=== PATIENT | female | born 1950 | race African-American/Black ===

== ENCOUNTER 2016-07-05 12:16 | Emergency (ER) | payer OTHER ==
[~2016-07-05] VITALS: Ht 162.6 cm; Wt 87.1 kg
[~2016-07-05 12:16] MED LIST: ALBU2.5V14 IH; ALPR1TAB2 PO; ATOR40TA PO; BISA-42 PO; BRIN10DR EACHEYE; CITA20TA5 PO; CLON0.5T3 PO; DICL50TA2 PO; HYDR-971 PO; HYDR1TAB10 PO; LISI10TA2 PO; LISI1TAB5 PO; LORA10TA3 PO; LOSA100T2 PO; LOSA100T6 PO; MILN100T PO; MULT-246 PO; OXYC-323 PO; PYRI25TA2 PO; QUET100T4 PO; QUET25TA5 PO; TOPI100T39 PO; TOPI100T90 PO
[2016-07-05] MEDS ORDERED: OXYC-323 PO (12:53)
--- NOTE | 2016-07-05 13:02 | ED.ADGEN ---
Past History Past Medical History: Bronchitis, Diabetes, Fibromyalgia, Hypertension Past Surgical History: Hysterectomy, Tubal ligation, Other Smoking: Non-smoker Alcohol Use: None Drug Use: None Adult General HPI HPI Patient is a 65-year-old female presents emergency department complaining of myalgia "everywhere". She reports she has pain from top of her head to the bottom of her feet. She reports falling out of bed last night. She tells me she was sleeping next to a sick child and an attempt not to wake the child loss of balance skin on the bed and fell to the floor. She denies any specific or focal complaint but reports that the fall aggravated all of her past injuries. She declines any x-rays or workup but is requesting Percocet as her home medications and I given her satisfactory relief. Review of Systems Review of Systems Constitutional: Denies fever or chills [] Eyes: Denies change in visual acuity, redness, or eye pain [] HENT: Denies nasal congestion or sore throat [] Respiratory: Denies cough or shortness of breath [] Cardiovascular: No additional information not addressed in HPI [] GI: Denies abdominal pain, nausea, vomiting, bloody stools or diarrhea [] : Denies dysuria or hematuria [] Musculoskeletal: Denies back pain or joint pain [] Integument: Denies rash or skin lesions [] Neurologic: Denies headache, focal weakness or sensory changes [] Endocrine: Denies polyuria or polydipsia [] Allergies Allergies Allergies Coded Allergies Type Severity Reaction Last Updated Verified hydrocodone Allergy Intermediate itching 09/13/13 No oxycodone Allergy Intermediate ITCHING, takes PERCOCET at home 05/12/14 No Physical Exam Physical Exam Constitutional: Well developed, well nourished, no acute distress, non-toxic appearance. [] HENT: Normocephalic, atraumatic, bilateral external ears normal, oropharynx moist, no oral exudates, nose normal. [] Eyes: PERRLA, EOMI, conjunctiva normal, no discharge. [] Neck: Normal range of motion, no tenderness, supple, no stridor. [] Cardiovascular:Heart rate regular rhythm, no murmur [] Lungs & Thorax: Bilateral breath sounds clear to auscultation [] Abdomen: Bowel sounds normal, soft, no tenderness, no masses, no pulsatile masses. [] Skin: Warm, dry, no erythema, no rash. [] Back: No tenderness, no CVA tenderness. [] Extremities: No tenderness, no cyanosis, no clubbing, ROM intact, no edema. [] Neurologic: Alert and oriented X 3, normal motor function, normal sensory function, no focal deficits noted. [] Psychologic: Affect normal, judgement normal, mood normal. [] Current Patient Data Vital Signs Vital Signs Date Time Temp Pulse Resp B/P Pulse Ox O2 Delivery O2 Flow Rate FiO2 07/05/16 12:16 98.2 86 20 97 Room Air EKG EKG [] Radiology/Procedures Radiology/Procedures [] Course & Med Decision Making Course & Med Decision Making Pertinent Labs and Imaging studies reviewed. (See chart for details) The patient is not in much distress. We did spend a significant amount of time discussing the usual supportive care but ultimately she will be discharged home with a small prescription for Percocet as well as supportive care and follow-up instructions. [] Final Impression Final Impression Myalgias [] Problems: Dragon Disclaimer Dragon Disclaimer This electronic medical record was generated, in whole or in part, using a voice recognition dictation system. DELFINO DE LEON MD Jul 05, 2016 13:02
[2016-07-05] MEDS: FENTANYL PF 100 MCG/2 ML VIAL. IM ONE (13:19)
[2016-07-05 13:20] VITALS: BP 142/80
== END 2016-07-05 13:35 | disposition home or self-care (01) ==
LOC: ER 12:16
DX: M79.1 Myalgia (principal); E11.9 Type 2 diabetes mellitus without complications; M79.7 Fibromyalgia; I10 Essential (primary) hypertension; Z88.6 Allergy status to analgesic agent; W06.XXXA Fall from bed, initial encounter; Y93.89 Activity, other specified; Y99.8 Other external cause status; Y92.89 Other specified places as the place of occurrence of the external cause
CPT/HCPCS: 96372; 99284; J3010; 99283-25

== ENCOUNTER 2016-10-08 21:05 | Emergency (ER) | payer OTHER ==
[~2016-10-08] VITALS: Ht 162.6 cm; Wt 90.7 kg
[~2016-10-08 21:05] MED LIST changes: -TOPI100T39 PO; +TOPI100T42 PO; +TOPI100T8 PO; -TOPI100T90 PO
[2016-10-08 21:16] VITALS: BP 133/85
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
[2016-10-08] MEDS ORDERED: KETOROLAC 30 MG/ML VIAL. IV ONE (21:30)
[2016-10-08] MEDS ORDERED: ACETAMINOPHEN 325 MG TABLET PO ONE (21:30)
[2016-10-08] MEDS ORDERED: IV NORMAL SALINE 1,000ML 1,000 ML IV SCH (21:30)
[2016-10-08] MEDS ORDERED: 0.9 % SODIUM CHLORIDE 10 ML DISP.SYRIN. IV PRN (21:30)
[2016-10-08 22:14] LABS: BASO # 0.2 x10^3/uL (0.0-0.2); BASO % 2 % (0-3); EOS # 0.4 x10^3/uL (0.0-0.7); EOS % 4 % (0-3); HEMATOCRIT 32.8 % (36.0-47.0); HEMOGLOBIN 10.9 g/dL (12.0-15.5); LYMPH # 3.9 x10^3/uL (1.0-4.8); LYMPH % 45 % (24-48); MEAN CORPUSCULAR HEMOGLOBIN 28 pg (25-35); MEAN CORPUSCULAR HGB CONC 33 g/dL (31-37); MEAN CORPUSCULAR VOLUME 84 fL (79-100); MONO # 0.6 x10^3/uL (0.0-1.1); MONO % 7 % (0-9); NEUT # 3.7 x10^3uL (1.8-7.7); NEUT % 42 % (31-73); PLATELET COUNT 286 x10^3/uL (140-400); RED BLOOD COUNT 3.92 x10^6/uL (3.50-5.40); RED CELL DISTRIBUTION WIDTH 14.1 % (11.5-14.5); WHITE BLOOD COUNT 8.8 x10^3/uL (4.0-11.0)
[2016-10-08 22:31] LABS: INFLUENZA A PATIENT NEGATIVE (NEGATIVE); INFLUENZA B PATIENT NEGATIVE (NEGATIVE)
[2016-10-08 22:36] LABS: ALBUMIN 3.4 g/dL (3.4-5.0); ALBUMIN/GLOBULIN RATIO 0.7 (1.0-1.7); C REACTIVE PROTEIN 2.7 mg/L (0-3.3); CALCIUM 8.8 mg/dL (8.5-10.1); CREATININE 0.9 mg/dL (0.6-1.0); GFR 75.6; MAGNESIUM 1.8 mg/dL (1.8-2.4); POTASSIUM 3.6 mmol/L (3.5-5.1); TOTAL BILIRUBIN 0.1 mg/dL (0.2-1.0)
[2016-10-08 23:18] LABS: SEDIMENTATION RATE 48 (0-25)
--- NOTE | 2016-10-09 00:34 | EKG ---
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
== END 2016-10-08 23:15 | disposition home or self-care (01) ==
LOC: ER 21:05
DX: M79.1 Myalgia (principal); M19.90 Unspecified osteoarthritis, unspecified site; E11.9 Type 2 diabetes mellitus without complications; I10 Essential (primary) hypertension; M79.7 Fibromyalgia; Z88.6 Allergy status to analgesic agent
CPT/HCPCS: 36415; 80053; 82553; 83690; 83735; 83880; 84443; 84484; 85027; 85651; 86140; 87804; 93005; 96361; 96374; 99285; J1885; J7030

== ENCOUNTER 2016-12-27 19:01 | Emergency (ER) | payer OTHER ==
[~2016-12-27] VITALS: Ht 162.6 cm; Wt 90.5 kg
[2016-12-27 19:02] VITALS: BP 141/53
[2016-12-27] MEDS ORDERED: TRAM1TAB4 PO (19:47)
[2016-12-27] MEDS ORDERED: AMOX500C PO (19:47)
[2016-12-27] MEDS ORDERED: CHLO15MO2 PO (19:47)
--- NOTE | 2016-12-27 19:47 | PHYS DOC ---
Past History Past Medical History: Bronchitis, Diabetes, Fibromyalgia, High Cholesterol, Hypertension Past Surgical History: Hysterectomy, Tubal ligation, Other Smoking: Non-smoker Alcohol Use: None Drug Use: None Adult General Chief Complaint Chief Complaint: ABSCESS HPI HPI Patient is a 66 year old female who presents with dental pain. She complains of pain to her mid upper incisors. "I feel like my upper lip is swollen." No drainage. "I have pain up into my eye." She was recently here in October for body aches with a negative evaluation. She does have fibromyalgia with long-standing pain and benzodiazepine Prescriptions in the tracks. Review of Systems Review of Systems Constitutional: Denies fever or chills Eyes: Denies change in visual acuity, redness, or drainage. HENT: Denies nasal congestion or sore throat; pain to upper tooth and lip. Allergies Allergies Allergies Coded Allergies Type Severity Reaction Last Updated Verified hydrocodone Allergy Intermediate itching 09/13/13 No oxycodone Allergy Intermediate ITCHING, takes PERCOCET at home 05/12/14 No Physical Exam Physical Exam Constitutional: Well developed, well nourished, no acute distress, non-toxic appearance. HENT: Normocephalic, atraumatic, tympanic membranes clear bilaterally, bilateral external ears normal, oropharynx moist, no oral exudates, nose normal. Upper dentition appears intact. No periapical swelling. The upper lip again is nonswollen. There is no palpable mass or abscess. No facial drainage. There is no drooling. handling secretions well. Eyes: PERRLA, EOMI, conjunctiva normal, no discharge. Neck: Normal range of motion, no tenderness, supple, no stridor. Cardiovascular:Heart rate regular rhythm, no murmur Lungs & Thorax: Bilateral breath sounds clear to auscultation Neurologic: Alert and oriented X 3, normal motor function, normal sensory function, no focal deficits noted. Course & Med Decision Making Course & Med Decision Making Patient feels like she has a dental abscess. However there is no obvious signs of a dental abscess. I told her she needs to see a dentist for complete evaluation. A prescription for Peridex rinses, amoxicillin, tramadol were given. I have spoken with the patient and/or caregivers. I have explained the patient' s condition, diagnosis and treatment plan based on the information available to me at this time. I have answered the patient's and/or caregiver's questions and addressed any concerns. The patient and/or caregivers have as good an understanding of the patient's diagnosis, condition and treatment plan as can be expected at this point. The patient's condition is stable and appropriate for discharge from the emergency department. The patient will pursue further outpatient evaluation with the primary care physician or other designated or consulting physician as outlined in the discharge instructions. The patient and/or caregivers are agreeable to this plan of care and follow-up instructions have been explained in detail. The patient and/or caregivers have received these instructions in written format and have expressed an understanding of the discharge instructions. The patient and/or caregivers are aware that any significant change in condition or worsening of symptoms should prompt an immediate return to this or the closest emergency department or a call to 911. Dragon Disclaimer Dragon Disclaimer This chart was dictated in whole or in part using Voice Recognition software in a busy, high-work load, and often noisy Emergency Department environment. It may contain unintended and wholly unrecognized errors or omissions. Departure Departure: Impression: Primary Impression: Pain, dental Disposition: 01 HOME, SELF-CARE Condition: STABLE Referrals: EVE HANCOCK (PCP) Patient Instructions: Dental Caries Additional Instructions: Use the rinse twice daily. SEE A DENTIST JEREMY Scripts Amoxicillin (AMOXICILLIN) 500 Mg Capsule 1 CAP PO BID, #20 CAP Prov: MITCH RODRÍGUEZ MD 12/27/16 Tramadol Hcl/Acetaminophen (TRAMADOL-ACETAMINOPHN 37.5-325) 1 Each Tablet 1 TAB PO Q4-6HRS, #15 TAB Prov: MITCH RODRÍGUEZ MD 12/27/16 Chlorhexidine Gluconate (PERIDEX) 15 Ml Mouthwash 15-30 ML PO TID, #473 ML 3 Refills Prov: MITCH RODRÍGUEZ MD 12/27/16 MITCH RODRÍGUEZ MD Dec 27, 2016 19:47
== END 2016-12-27 19:50 | disposition home or self-care (01) ==
LOC: ER 19:01
DX: K08.89 Other specified disorders of teeth and supporting structures (principal); E11.9 Type 2 diabetes mellitus without complications; E78.00 Pure hypercholesterolemia, unspecified; I10 Essential (primary) hypertension; M79.7 Fibromyalgia; Z88.5 Allergy status to narcotic agent
CPT/HCPCS: 99283

== ENCOUNTER 2017-02-03 11:07 | Emergency (ER) | payer OTHER ==
[2017-02-03 11:07] VITALS: BP 137/74
[~2017-02-03 11:07] MED LIST changes: +AMOX500C PO; +CHLO15MO2 PO; +TRAM1TAB4 PO
[2017-02-03] MEDS ORDERED: NYST15CR2 TP (11:28)
--- NOTE | 2017-02-03 11:28 | PHYS DOC ---
Past History Past Medical History: Bronchitis, Diabetes, Fibromyalgia, High Cholesterol, Hypertension Past Surgical History: Hysterectomy, Tubal ligation, Other Smoking: Non-smoker Alcohol Use: None Drug Use: None Adult General Chief Complaint Chief Complaint: SKIN PROBLEM HPI HPI Patient is a pleasant 66-year-old female who presents with a rash on her lower abdomen between skin folds of her abdomen and her thighs. She describes it was tense and itchy with areas of discomfort, she denies any fevers, chills, joint pain, headaches or other symptoms. She says she's had a URI-like symptoms: Last several days. She denies any recent changes medications, antibiotics, prior symptoms of the same. She has a history of shingles in the past on her gluteus region. She's been using a local ointment without much much improvement. Review of Systems Review of Systems Constitutional: Denies fever or chills [] Eyes: Denies change in visual acuity, redness, or eye pain [] HENT: Denies nasal congestion or sore throat [] Respiratory: Denies cough or shortness of breath [] Cardiovascular: No additional information not addressed in HPI [] GI: Denies abdominal pain, nausea, vomiting, bloody stools or diarrhea [] : Denies dysuria or hematuria [] Musculoskeletal: Denies back pain or joint pain [] Integument: Patient claims about a skin rash on her lower abdomen between the folds or skin abdominal wall and thighs. Neurologic: Denies headache, focal weakness or sensory changes [] Allergies Allergies Allergies Coded Allergies Type Severity Reaction Last Updated Verified hydrocodone Allergy Intermediate itching 09/13/13 No oxycodone Allergy Intermediate ITCHING, takes PERCOCET at home 05/12/14 No Physical Exam Physical Exam Vital signs recorded on the chart for boardline hypertension noted. Constitutional: Well developed, well nourished, no acute distress, non-toxic appearance. [] Cardiovascular:Heart rate regular rhythm, no murmur [] Lungs & Thorax: Bilateral breath sounds clear to auscultation [] Abdomen: Bowel sounds normal, soft, no tenderness, no masses, no pulsatile masses. [] Skin: Warm, dry, patient has a typical erythematous candidal rash on the folds or skin with some skin breakdown and maceration secondary to the adipose tissue. There are some noted satellite lesions but no evidence of cellulitis. No joint pain or joint involvement no symptoms or findings on the palms of her hands. Extremities: No tenderness, ROM intact, no edema. [] Neurologic: Alert and oriented X 3, normal gait Psychologic: Affect normal, judgement normal, mood normal. [] EKG EKG [] Radiology/Procedures Radiology/Procedures [] Course & Med Decision Making Course & Med Decision Making Pertinent Labs and Imaging studies reviewed. (See chart for details) [] Dragon Disclaimer Dragon Disclaimer This chart was dictated in whole or in part using Voice Recognition software in a busy, high-work load, and often noisy Emergency Department environment. It may contain unintended and wholly unrecognized errors or omissions. Departure Departure: Impression: Primary Impression: Candidiasis Disposition: 01 HOME, SELF-CARE Condition: STABLE Referrals: EVE HANCOCK (PCP) Patient Instructions: Cutaneous Candidiasis Additional Instructions: My discharge plan Follow up: In addition patient is asked to followup with their primary doctor, within a week for followup examination and to address patient's ongoing medical conditions. Patient is advised that in the Emergency Department primary complaints are addressed and only in light of known signs and symptoms. Patient should return immediately to the emergency department if new signs and symptoms develop or patient's condition worsens in any way. At time of discharge patient was in stable condition and had verbalized understanding of the discharge instructions. Scripts Nystatin/Triamcin (NYSTATIN-TRIAMCINOLONE CREAM) 15 Gm Cream..g. 1 TIMMY TP BID, #60 GM 1 Refill Prov: WIN ALLEN MD 02/03/17 WIN ALLEN MD Feb 03, 2017 11:28
== END 2017-02-03 11:30 | disposition home or self-care (01) ==
LOC: ER 11:07
DX: B37.9 Candidiasis, unspecified (principal); E11.9 Type 2 diabetes mellitus without complications; E78.00 Pure hypercholesterolemia, unspecified; I10 Essential (primary) hypertension; M79.7 Fibromyalgia; Z88.5 Allergy status to narcotic agent
CPT/HCPCS: 99283

== ENCOUNTER → 2017-06-06 | Outpatient (CLI) | payer OTHER ==
[~2017-06-06] MED LIST changes: +NYST15CR2 TP
--- NOTE | 2017-06-07 11:20 | RAD ---
DATE: June 06, 2017 EXAM: MAMMO CESARIO SCREENING BILATERAL HISTORY: Screening study. COMPARISON: June 17, 2015 This study was interpreted with the benefit of Computerized Aided Detection (CAD). 2-D digital mammographic views of both breasts were performed in the CC and MLO projections. 3-D digital tomosynthesis of both breasts were performed in the CC and MLO projections and reviewed on a computer workstation. FINDINGS: The breast parenchyma is scattered and mildly dense. There are no dominant suspicious masses, suspicious microcalcifications or evidence of architectural distortion. IMPRESSION: No mammographic indicators for malignancy. BI-RADS CATEGORY: 1 NEGATIVE RECOMMENDED FOLLOW-UP: 12M 12 MONTH FOLLOW-UP PQRS compliance statement: Patient information was entered into a reminder system with a target due date June 07, 2018 for the next mammogram. Mammography is a sensitive method for finding small breast cancers, but it does not detect them all and is not a substitute for careful clinical examination. A negative mammogram does not negate a clinically suspicious finding and should not result in delay in biopsying a clinically suspicious abnormality. "Our facility is accredited by the [employer] Mammography Program." The patient's breast density may affect the ability of mammography to detect breast cancer. There are 4 categories of breast density, A, B, C and D. Breast density A means that most of the breast tissue is replaced with adipose tissue and therefore is not dense. Breast density B means that the breast tissue is mildly dense and scattered. Breast density C means that the breast tissue is heterogeneously dense. Breast density D means that the breast tissue is very dense. Breast densities especially C and D may decrease the sensitivity of mammography to detect breast cancer. Therefore, the patient may benefit from 3-D breast mammography (3D breast tomography) as a part of their screening mammogram. Insurance may or may not pay for this additional imaging. The patient's breast density based on today's mammogram is category B.
== END | disposition home or self-care (01) ==
LOC: MAMMO 13:05
PROVIDERS: ATTEND Physician Assistant
DX: Z12.31 Encounter for screening mammogram for malignant neoplasm of breast (principal)
CPT/HCPCS: 77063; 77067

== ENCOUNTER 2017-06-21 15:52 | Emergency (ER) | payer OTHER ==
[~2017-06-21] VITALS: Ht 162.6 cm; Wt 94.7 kg
[2017-06-21 17:23] VITALS: BP 130/98
--- NOTE | 2017-06-21 17:32 | PHYS DOC ---
Past History Past Medical History: Bronchitis, Diabetes, Fibromyalgia, High Cholesterol, Hypertension, TB Past Surgical History: Hysterectomy, Tubal ligation Smoking: Non-smoker Alcohol Use: None Drug Use: None Adult General Chief Complaint Chief Complaint: SKIN PROBLEM HPI HPI Patient is a 66 year old F who presents with right-sided knee pain over the past 5-7 days. Lesa states that her pain is worse when she straightens her leg and improved when she bends her leg. She feels that she has had difficulty walking. She does not feel that her pain radiates. She has no other associated symptoms. She has no other exacerbating or relieving factors. Review of Systems Review of Systems Constitutional: Denies fever or chills [] Eyes: Denies change in visual acuity, redness, or eye pain [] HENT: Denies nasal congestion or sore throat [] Respiratory: Denies cough or shortness of breath [] Cardiovascular: No additional information not addressed in HPI [] GI: Denies abdominal pain, nausea, vomiting, bloody stools or diarrhea [] : Denies dysuria or hematuria [] Musculoskeletal: Denies back pain Integument: Denies rash or skin lesions [] Neurologic: Denies headache, focal weakness or sensory changes [] Endocrine: Denies polyuria or polydipsia [] All other systems were reviewed and found to be within normal limits, except as documented in this note. Family History Family History No pertinent family medical history was reported Current Medications Current Medications Current Medications Medications (Trade) Dose Ordered Sig/Renay Start Time Stop Time Status Last Admin Dose Admin Ketorolac Tromethamine (Toradol) 60 mg 1X ONCE 06/21/17 17:30 06/21/17 17:31 UNV Allergies Allergies Allergies Coded Allergies Type Severity Reaction Last Updated Verified hydrocodone Allergy Intermediate itching 09/13/13 No oxycodone Allergy Intermediate ITCHING, takes PERCOCET at home 05/12/14 No Physical Exam Physical Exam Constitutional: Well developed, well nourished, no acute distress, non-toxic appearance. [] HENT: Normocephalic, atraumatic Eyes: EOMI, conjunctiva normal, no discharge. [] Neck: Normal range of motion, no tenderness, supple, no stridor. [] Cardiovascular:Heart rate regular rhythm Lungs & Thorax: Bilateral breath sounds clear to auscultation [] Abdomen: Bowel sounds normal, soft, no tenderness, no masses, no pulsatile masses. [] Skin: Warm, dry, no erythema, no rash. [] Extremities: no cyanosis, no clubbing, ROM intact, no edema. [] Right-sided posterior knee pain with extension. Neurologic: Alert and oriented X 3, normal motor function, normal sensory function, no focal deficits noted. [] Psychologic: Affect normal, judgement normal, mood normal. [] Current Patient Data Vital Signs Vital Signs Date Time Temp Pulse Resp B/P (MAP) Pulse Ox O2 Delivery O2 Flow Rate FiO2 06/21/17 17:23 100 18 130/98 (109) 97 Room Air 06/21/17 16:09 98.1 EKG EKG [] Radiology/Procedures Radiology/Procedures [] Course & Med Decision Making Course & Med Decision Making Pertinent Labs and Imaging studies reviewed. (See chart for details) [] Dragon Disclaimer Dragon Disclaimer This electronic medical record was generated, in whole or in part, using a voice recognition dictation system. Departure Departure: Impression: Primary Impression: Bakers cyst Disposition: 01 HOME, SELF-CARE Condition: STABLE Referrals: EVE HANCOCK (PCP) Patient Instructions: Marrero's Cyst Additional Instructions: Lesa was seen in the emergency department for knee pain. No emergency medical condition was found on history or physical exam. Her symptoms are most consistent with a Marrero's cyst. She was given a anti-inflammatory in the emergency room and encouraged use Voltaren gel. She was also encouraged to consider physical therapy for further management. She was advised follow-up with her primary care doctor in the next 3-5 days for further management. Problem Qualifiers Primary Impression: Bakers cyst Laterality: right Qualified Codes: M71.21 - Synovial cyst of popliteal space [Marrero], right knee FELIBERTO BE MD Jun 21, 2017 17:32
[2017-06-21] MEDS ORDERED: KETOROLAC 60 MG/2 ML VIAL. IM ONE (17:45)
== END 2017-06-21 17:44 | disposition home or self-care (01) ==
LOC: ER 15:52
DX: M71.21 Synovial cyst of popliteal space [Baker], right knee (principal); E11.9 Type 2 diabetes mellitus without complications; M79.7 Fibromyalgia; I10 Essential (primary) hypertension; E78.00 Pure hypercholesterolemia, unspecified; Z88.5 Allergy status to narcotic agent
CPT/HCPCS: 96372; 99283; J1885

== ENCOUNTER 2017-10-25 18:39 | Emergency (ER) | payer OTHER ==
[~2017-10-25] VITALS: Ht 167.6 cm; Wt 82.6 kg
[~2017-10-25 18:39] MED LIST changes: -CITA20TA5 PO; +CITA20TA6 PO; +CLON0.5T11 PO; -CLON0.5T3 PO
[2017-10-25] MEDS ORDERED: DEXAMETHASONE 4 MG TABLET PO ONE (19:45)
[2017-10-25] MEDS ORDERED: PENICILLIN V K 250 MG TABLET. PO ONE (19:45)
[2017-10-25] MEDS ORDERED: BUPIVAC MPF-EPI 0.5%-1:200000 30 ML VIAL. IJ ONE (19:45)
[2017-10-25] MEDS ORDERED: PRED20TA PO (20:20)
[2017-10-25] MEDS ORDERED: PENI500T PO (20:20)
[2017-10-25] MEDS ORDERED: CHLO15MO2 PO (20:20)
--- NOTE | 2017-10-25 20:20 | PHYS DOC ---
Past History Past Medical History: Fibromyalgia, GERD, Hypertension, Other Past Surgical History: No Surgical History Smoking: Non-smoker Alcohol Use: None Drug Use: None Adult General Chief Complaint Chief Complaint: DENTAL PROBLEM HPI HPI 66-year-old female presents with toothache to left upper premolar 3 days. Denies any fever or chills. Patient does report history of smoking. Reports history of poor dentition. Review of Systems Review of Systems Constitutional: Denies fever or chills [] Eyes: Denies change in visual acuity, redness, or eye pain [] HENT: Reports toothache and swelling Respiratory: Denies cough or shortness of breath Cardiovascular: Denies chest pain or syncope GI: Denies abdominal pain, nausea, vomiting, bloody stools or diarrhea [] : Denies dysuria or hematuria [] Musculoskeletal: Denies back pain or joint pain [] Integument: Denies rash or skin lesions [] Neurologic: Denies headache, focal weakness or sensory changes [] Complete systems were reviewed and found to be within normal limits, except as documented in this note. Current Medications Current Medications Current Medications Medications (Trade) Dose Ordered Sig/Renay Start Time Stop Time Status Last Admin Dose Admin Bupivacaine HCl/ Epinephrine Bitart (Sensorcain-Mpf Epi 0.5%-[id number]) 30 ml 1X ONCE 10/25/17 19:45 10/25/17 19:46 DC Dexamethasone (Decadron) 10 mg 1X ONCE 10/25/17 19:45 10/25/17 19:46 DC 10/25/17 20:03 10 MG Penicillin V Potassium (Veetid) 500 mg 1X ONCE 10/25/17 19:45 10/25/17 19:46 DC 10/25/17 20:02 500 MG Allergies Allergies Allergies Coded Allergies Type Severity Reaction Last Updated Verified hydrocodone Allergy Intermediate itching 09/13/13 No oxycodone Allergy Intermediate ITCHING, takes PERCOCET at home 05/12/14 No Physical Exam Physical Exam Constitutional: Well developed, well nourished, uncomfortable non-toxic appearance. [] HENT: Normocephalic, atraumatic, oropharynx moist, no oral exudates, nose normal. Left mandibular 2nd premolar noted to have poor dentition with multiple filling noted, mild gingival swelling noted Eyes: EOMI, conjunctiva normal, no discharge. [] Neck: Normal range of motion, no tenderness, supple, no stridor. [] Cardiovascular: Heart rate regular rhythm, no murmur [] Lungs & Thorax: Bilateral breath sounds clear to auscultation [] Abdomen: Bowel sounds normal, soft, no tenderness, no masses, no pulsatile masses. [] Skin: Warm, dry, no erythema, no rash. [] Back: No tenderness, no CVA tenderness. [] Extremities: No tenderness, no cyanosis, no clubbing, ROM intact, no edema. [] Neurologic: Alert and oriented X 3, normal motor function, normal sensory function, Psychologic: Affect normal, judgement normal, mood normal. [] Current Patient Data Vital Signs Vital Signs Date Time Temp Pulse Resp B/P (MAP) Pulse Ox O2 Delivery O2 Flow Rate FiO2 10/25/17 19:05 97.4 92 18 98 Room Air EKG EKG [] Radiology/Procedures Radiology/Procedures [] Course & Med Decision Making Course & Med Decision Making Patient presents with dental caries with toothache. Empiric antibiotics initiated. Symptomatic treatment provided with oral steroid and dental block. Patient with interval resolution of symptoms.Patient stable for discharge with outpatient follow-up with PCP/dentist. Discussed findings and plan with patient and family, who acknowledge understanding and agreement. Dragon Disclaimer Dragon Disclaimer This electronic medical record was generated, in whole or in part, using a voice recognition dictation system. Departure Departure: Impression: Primary Impression: Dentalgia Additional Impression: Dental caries Disposition: HOME, SELF-CARE Condition: STABLE Referrals: EVE HANCOCK (PCP) Patient Instructions: Dental Caries-Brief, Dental Pain, [id number] Scripts Chlorhexidine Gluconate (PERIDEX) 15 Ml Mouthwash 15 ML PO BID, #946 ML Prov: GINA VARGAS DO 10/25/17 Prednisone (PREDNISONE) 20 Mg Tablet 2 TAB PO DAILY for 5 Days, #10 TAB Prov: GINA VARGAS DO 10/25/17 Penicillin V Potassium (PENICILLIN V POTASSIUM) 500 Mg Tablet 1 TAB PO QID for 7 Days, #28 TAB Prov: GINA VARGAS DO 10/25/17 Problem Qualifiers GINA VARGAS DO Oct 25, 2017 20:20
[2017-10-25 20:35] VITALS: BP 131/72
== END 2017-10-25 20:45 | disposition home or self-care (01) ==
LOC: ER 18:39
DX: K02.9 Dental caries, unspecified (principal); M79.7 Fibromyalgia; K21.9 Gastro-esophageal reflux disease without esophagitis; I10 Essential (primary) hypertension; Z87.891 Personal history of nicotine dependence; Z88.5 Allergy status to narcotic agent
CPT/HCPCS: 64400; 99284; J8540

== ENCOUNTER 2017-11-06 13:12 | Emergency (ER) | payer OTHER ==
[~2017-11-06] VITALS: Ht 162.6 cm; Wt 81.6 kg
[~2017-11-06 13:12] MED LIST changes: +PENI500T PO; +PRED20TA PO
[2017-11-06 13:58] LABS: BASO # 0.1 x10^3/uL (0.0-0.2); BASO % 1 % (0-3); EOS # 0.2 x10^3/uL (0.0-0.7); EOS % 3 % (0-3); HEMATOCRIT 35.7 % (36.0-47.0); HEMOGLOBIN 11.7 g/dL (12.0-15.5); LYMPH # 2.1 x10^3/uL (1.0-4.8); LYMPH % 31 % (24-48); MEAN CORPUSCULAR HEMOGLOBIN 27 pg (25-35); MEAN CORPUSCULAR HGB CONC 33 g/dL (31-37); MEAN CORPUSCULAR VOLUME 84 fL (79-100); MONO # 0.7 x10^3/uL (0.0-1.1); MONO % 10 % (0-9); NEUT # 3.8 x10^3uL (1.8-7.7); NEUT % 55 % (31-73); PLATELET COUNT 284 x10^3/uL (140-400); RED BLOOD COUNT 4.27 x10^6/uL (3.50-5.40); WHITE BLOOD COUNT 6.8 x10^3/uL (4.0-11.0)
[2017-11-06] MEDS ORDERED: PANTOPRAZOLE IV 40 MG VIAL. IVP ONE (14:00)
[2017-11-06 14:08] LABS: ALBUMIN 3.5 g/dL (3.4-5.0); ALBUMIN/GLOBULIN RATIO 0.9 (1.0-1.7); CALCIUM 9.7 mg/dL (8.5-10.1); CREATININE 0.9 mg/dL (0.6-1.0); GFR 75.3; POTASSIUM 3.3 mmol/L (3.5-5.1); TOTAL BILIRUBIN 0.3 mg/dL (0.2-1.0); TOTAL PROTEIN 7.6 g/dL (6.4-8.2)
[2017-11-06] MEDS ORDERED: IV NORMAL SALINE 500ML 500 ML IV ONE (14:30)
--- NOTE | 2017-11-06 14:47 | RAD ---
Abdomen, 2 views, 11/06/2017: HISTORY: Throwing up blood, constipation There is a moderate amount stool in the colon. The abdominal gas pattern is otherwise unremarkable. No free air is seen in the abdomen. There is no evidence organomegaly. Lower pelvic calcifications are probably phleboliths. There are mild scattered degenerative changes in the spine. IMPRESSION: 1. Increased stool in the colon. 2. Otherwise no acute abdominal abnormality is detected. Electronically signed by: Fab Dalton MD (11/06/2017 2:43 PM) [facility]
[2017-11-06] MEDS ORDERED: POTASSIUM CHLORIDE 20 MEQ TABLET.ER. PO ONE (15:15)
--- NOTE | 2017-11-06 15:33 | PHYS DOC ---
Past History Past Medical History: Fibromyalgia, GERD, Hypertension, Other Past Surgical History: No Surgical History, Hysterectomy Smoking: Non-smoker Alcohol Use: None Drug Use: None Adult General Chief Complaint Chief Complaint: HEMATEMESIS/VOMITING BLOOD [facility] HPI 66-year-old female patient states she had 1 episodes of vomiting fresh bright blood without blood clot or food material or coffee ground material. It the toilet for was full of blood. Patient complaining of chronic abdominal pain for several months and her primary care physician is going to have an appointment for GI evaluation. Patient complaining of constipation without having a bowel movement for the last 2 weeks and states usually she has been presented today. Patient stated she had flatus today. Patient denies nausea, fever and chills, chest pain, shortness of breath, history of GI bleeding, melena or rectal bleeding. Review of Systems Review of Systems Constitutional: Denies fever or chills [] Eyes: Denies change in visual acuity, redness, or eye pain [] HENT: Denies nasal congestion or sore throat [] Respiratory: Denies cough or shortness of breath [] Cardiovascular: No additional information not addressed in HPI [] GI: Reports abdominal pain, nausea, vomiting, constipation, denies bloody stools or diarrhea [] : Denies dysuria or hematuria [] Musculoskeletal: Denies back pain or joint pain [] Integument: Denies rash or skin lesions [] Neurologic: Denies headache, focal weakness or sensory changes [] Endocrine: Denies polyuria or polydipsia [] All other systems were reviewed and found to be within normal limits, except as documented in this note. Current Medications Current Medications Current Medications Medications (Trade) Dose Ordered Sig/Renay Start Time Stop Time Status Last Admin Dose Admin Pantoprazole Sodium (Protonix Vial) 40 mg 1X ONCE 11/06/17 14:00 11/06/17 14:01 DC 11/06/17 14:10 40 MG Potassium Chloride (Klor-Con) 40 meq 1X ONCE 11/06/17 15:15 11/06/17 15:16 DC 11/06/17 15:19 40 MEQ Sodium Chloride 500 ml @ 0 mls/hr 1X ONCE 11/06/17 14:30 11/06/17 14:31 DC 11/06/17 14:30 500 MLS/HR Allergies Allergies Allergies Coded Allergies Type Severity Reaction Last Updated Verified hydrocodone Allergy Intermediate itching 6/13/14 No oxycodone Allergy Intermediate ITCHING, takes PERCOCET at home 05/12/14 No Physical Exam Physical Exam Constitutional: Well developed, well nourished, mild distress, non-toxic appearance, no pallor. [] HENT: Normocephalic, atraumatic, oropharynx moist, no oral exudates, nose normal. [] Eyes: PERRLA, EOMI, conjunctiva normal, no discharge. [] Neck: Normal range of motion, no tenderness, supple, no stridor. [] Cardiovascular:Heart rate regular rhythm, no murmur [] Lungs & Thorax: Bilateral breath sounds clear to auscultation [] Abdomen: Bowel sounds normal, soft, distended with gas, voluntary guarding, no tenderness, no masses, no pulsatile masses, patient refused rectal exam. [] Skin: Warm, dry, no erythema, no rash. [] Back: No tenderness, no CVA tenderness. [] Extremities: No tenderness, no cyanosis, no clubbing, ROM intact, no edema. [] Neurologic: Alert and oriented X 3, normal motor function, normal sensory function, no focal deficits noted. [] Psychologic: Affect anxious, judgement normal, mood normal. [] Current Patient Data Vital Signs Vital Signs Date Time Temp Pulse Resp B/P (MAP) Pulse Ox O2 Delivery O2 Flow Rate FiO2 11/06/17 14:45 85 20 133/87 (102) 100 Room Air 11/06/17 13:12 98.2 Lab Results Laboratory Tests Test 11/06/17 13:35 White Blood Count 6.8 x10^3/uL (4.0-11.0) Red Blood Count 4.27 x10^6/uL (3.50-5.40) Hemoglobin 11.7 g/dL (12.0-15.5) L Hematocrit 35.7 % (36.0-47.0) L Mean Corpuscular Volume 84 fL (79-100) Mean Corpuscular Hemoglobin 27 pg (25-35) Mean Corpuscular Hemoglobin Concent 33 g/dL (31-37) Red Cell Distribution Width 16.0 % (11.5-14.5) H Platelet Count 284 x10^3/uL (140-400) Neutrophils (%) (Auto) 55 % (31-73) Lymphocytes (%) (Auto) 31 % (24-48) Monocytes (%) (Auto) 10 % (0-9) H Eosinophils (%) (Auto) 3 % (0-3) Basophils (%) (Auto) 1 % (0-3) Neutrophils # (Auto) 3.8 x10^3uL (1.8-7.7) Lymphocytes # (Auto) 2.1 x10^3/uL (1.0-4.8) Monocytes # (Auto) 0.7 x10^3/uL (0.0-1.1) Eosinophils # (Auto) 0.2 x10^3/uL (0.0-0.7) Basophils # (Auto) 0.1 x10^3/uL (0.0-0.2) Prothrombin Time 10.7 SEC (9.4-11.4) Prothrombin Time INR 1.0 (0.9-1.1) PTT 23 SEC (23-33) Sodium Level 137 mmol/L (136-145) Potassium Level 3.3 mmol/L (3.5-5.1) L Chloride Level 105 mmol/L (98-107) Carbon Dioxide Level 23 mmol/L (21-32) Anion Gap 9 (6-14) Blood Urea Nitrogen 10 mg/dL (7-20) Creatinine 0.9 mg/dL (0.6-1.0) Estimated GFR (Cockcroft-Gault) 75.3 BUN/Creatinine Ratio 11 (6-20) Glucose Level 98 mg/dL (70-99) Calcium Level 9.7 mg/dL (8.5-10.1) Total Bilirubin 0.3 mg/dL (0.2-1.0) Aspartate Amino Transferase (AST) 20 U/L (15-37) Alanine Aminotransferase (ALT) 27 U/L (14-59) Alkaline Phosphatase 94 U/L (46-116) Total Protein 7.6 g/dL (6.4-8.2) Albumin 3.5 g/dL (3.4-5.0) Albumin/Globulin Ratio 0.9 (1.0-1.7) L Lipase 53 U/L (73-393) L EKG EKG [] Radiology/Procedures Radiology/Procedures [[address] [address] IMAGING REPORT Signed PATIENT: IRMA SCHUMACHER ACCOUNT: [id number] : 1950 LOCATION: ER AGE: 66 SEX: F EXAM STATUS: REG ER ORD. PHYSICIAN: ANI CLARK MD REASON: constipation PROCEDURE: ABDOMEN SUPINE & UPRIGHT Abdomen, 2 views, 11/06/2017: HISTORY: Throwing up blood, constipation There is a moderate amount stool in the colon. The abdominal gas pattern is otherwise unremarkable. No free air is seen in the abdomen. There is no evidence organomegaly. Lower pelvic calcifications are probably phleboliths. There are mild scattered degenerative changes in the spine. IMPRESSION: 1. Increased stool in the colon. 2. Otherwise no acute abdominal abnormality is detected. Electronically signed by: Fab Dalton MD (11/06/2017 2:43 PM) [facility] DICTATED AND SIGNED BY: FAB DALTON MD DATE: 11/06/17 1448 CC: ANI CLARK MD; EVE HANCOCK ~ ] Course & Med Decision Making Course & Med Decision Making Pertinent Labs and Imaging studies reviewed. (See chart for details) Evaluation of patient in ER showed 66-year-old female patient with complaining of one episode of lifting fresh blood. Patient had unremarkable physical exam except for mild pallor as a chronic anemia. Patient refuses rectal exam. Patient did not have vomiting and had unremarkable orthostatic vitals. Patient had potassium of 3.3 and felt nauseous after taking potassium. Patient had increase of stool in x-ray of abdomen and plan to discharge home with prescription of magnesium citrate and Zofran. Patient has plan to follow with GI for chronic abdominal pain. She presented to ER with another family member as a patient at the same time. Dragon Disclaimer Dragon Disclaimer This electronic medical record was generated, in whole or in part, using a voice recognition dictation system. Departure Departure: Impression: Primary Impression: Constipation Additional Impressions: Hypokalemia Chronic abdominal pain Chronic anemia Disposition: 01 HOME, SELF-CARE (at 1545) Condition: IMPROVED Referrals: EVE HANCOCK (PCP) Patient Instructions: Abdominal Pain, Constipation, Adult, Hypokalemia Additional Instructions: Drink plenty of liquids Follow-up with your primary care physician in 3-5 days Return to ER if not getting better Scripts Magnesium Citrate (MAGNESIUM CITRATE) 296 Ml Solution 296 ML PO ONCE, #296 ML Prov: ANI CLARK MD 11/06/17 Ondansetron (ZOFRAN ODT) 4 Mg Tab.rapdis 1 TAB SL Q8HRS, #15 TAB Prov: ANI CLARK MD 11/06/17 Problem Qualifiers ANI CLARK MD Nov 06, 2017 15:32
[2017-11-06 15:42] LABS: BILIRUBIN,URINE NEG (NEG); CLARITY,URINE HAZY; COLOR,URINE YELLOW; GLUCOSE,URINE NEG (NEG); NITRITE,URINE NEG (NEG); UROBILINOGEN,URINE 0.2 mg/dL (0.2 mg/dL)
[2017-11-06 15:43] LABS: AMORPHOUS SEDIMENT,UR PRESENT /HPF; BACTERIA,URINE FEW /HPF (0-FEW); SQUAMOUS EPITHELIAL CELL,UR MANY /LPF
[2017-11-06] MEDS ORDERED: ONDA4TAB10 SL (15:53)
[2017-11-06] MEDS ORDERED: MAGN296S9 PO (15:53)
[2017-11-06 15:57] LABS: AMPHETAMINE/METHAMPHETAMINE POS (NEG); BARBITURATES NEG (NEG); BENZODIAZEPINES POS (NEG); CANNABINOIDS POS (NEG); COCAINE POS (NEG); METHADONE NEG (NEG); OPIATES POS (NEG); PHENCYCLIDINE NEG (NEG)
[2017-11-06 16:00] VITALS: BP 165/90
== END 2017-11-06 16:05 | disposition home or self-care (01) ==
LOC: ER 13:12
DX: K59.00 Constipation, unspecified (principal); E87.6 Hypokalemia; K92.0 Hematemesis; G89.29 Other chronic pain; R10.9 Unspecified abdominal pain; D64.89 Other specified anemias; K21.9 Gastro-esophageal reflux disease without esophagitis; I10 Essential (primary) hypertension; M79.7 Fibromyalgia; Z88.5 Allergy status to narcotic agent
CPT/HCPCS: 36415; 74021; 80053; 80307; 81001; 83690; 85025; 85610; 85730; 96361; 96374; 99285; C9113; J7040; G0479

== ENCOUNTER → 2018-03-08 | Outpatient (CLI) | payer OTHER ==
[~2018-03-08] MED LIST changes: +HYDR-3165 PO; -HYDR-971 PO; +LOSA100T14 PO; -LOSA100T6 PO; +MAGN296S9 PO; +ONDA4TAB10 SL; -OXYC-323 PO; +OXYC1TAB15 PO
--- NOTE | 2018-03-09 08:41 | RAD ---
Chest, 2 views, 03/08/2018: HISTORY: Cough Comparison is made to a study from 04/26/2016. The heart size and pulmonary vascularity are normal. There is minimal linear atelectasis or scarring in the left base. No pulmonary consolidation is seen. There is no evidence of pleural fluid. IMPRESSION: Minimal left basilar linear atelectasis or scarring. Electronically signed by: Fab Dalton MD (03/09/2018 8:37 AM) [facility]
== END | disposition home or self-care (01) ==
LOC: PMG 14:24
PROVIDERS: ATTEND Physician Assistant
DX: R05 Cough (principal); R06.00 Dyspnea, unspecified
CPT/HCPCS: 71046

== ENCOUNTER 2019-03-24 09:33 | Observation (INO) | payer OTHER ==
[~2019-03-24] VITALS: Ht 162.6 cm; Wt 84.1 kg
[~2019-03-24 09:33] MED LIST changes: -CLON0.5T11 PO; +CLON0.5T4 PO; +LISI1TAB19 PO; -LISI1TAB5 PO
--- NOTE | 2019-03-24 09:45 | PHYS DOC ---
Past History Past Medical History: Asthma, Fibromyalgia, GERD, Hypertension, Other Additional Past Medical Histor: vertigo Past Surgical History: No Surgical History, Hysterectomy Smoking: Cigarettes, Less than 1pk/day Alcohol Use: None Drug Use: Marijuana Adult General Chief Complaint Chief Complaint: [facility] Patient is a 68-year-old female presents post a syncopal episode that occurred while she was walking her dog. EMS says according to the daughter she did not hit her head. Patient is complaining of head pain and right-sided neck pain. She denies any chest pain or palpitations. She reports hearing from her daughter that she was unconscious for approximately 5 minutes. No reported seizure activity. No loss of bowel or bladder control. No numbness or tingling. Pain is currently mild in the head and neck. No nausea or vomiting. Nothing makes the symptoms better or worse. No previous history of syncopal episodes.[] Review of Systems Review of Systems Constitutional: Denies fever or chills [] Eyes: Denies change in visual acuity, redness, or eye pain [] HENT: Denies nasal congestion or sore throat [] Respiratory: Denies cough or shortness of breath [] Cardiovascular: No additional information not addressed in HPI [] GI: She is getting over a recent flulike illness with nausea and vomiting. This has been improving over the past several days.[] : Denies dysuria or hematuria [] Musculoskeletal: Denies back pain, see history of present illness[] Integument: Denies rash or skin lesions [] Neurologic: Denies focal weakness or sensory changes, see history of present illness [] Endocrine: Denies polyuria or polydipsia [] All other systems were reviewed and found to be within normal limits, except as documented in this note. Allergies Allergies Allergies Coded Allergies Type Severity Reaction Last Updated Verified hydrocodone Allergy Intermediate itching 09/13/13 No oxycodone Allergy Intermediate ITCHING, takes PERCOCET at home 05/12/14 No Physical Exam Physical Exam Constitutional: Well developed, well nourished, no acute distress, non-toxic appearance. [] HENT: Normocephalic, atraumatic, bilateral external ears normal, TMs are clearn o blood or fluid behind the TM, and negative Herring sign. Oropharynx moist, no oral exudates, nose normal. [] Eyes: PERRLA, EOMI, conjunctiva normal, no discharge. [] Neck: Normal range of motion, mild right-sided cervical paraspinal muscle tenderness. There is no midline tenderness, no step-off, no crepitus. supple, no stridor. [] Cardiovascular:Heart rate regular rhythm, no murmur [] Lungs & Thorax: Bilateral breath sounds clear to auscultation [] Abdomen: Bowel sounds normal, soft, no tenderness, no masses, no pulsatile mas ses. [] Skin: Warm, dry, no erythema, no rash. [] Back: No tenderness, no CVA tenderness. [] Extremities: No tenderness, no cyanosis, no clubbing, ROM intact, no edema. [] Neurologic: Alert and oriented X 3, normal motor function, normal sensory function, no focal deficits noted. [] Psychologic: Affect normal, judgement normal, mood normal. [] EKG EKG EKG shows a sinus rhythm at 62 bpm, left axis, QTC of 408 ms, no ST elevation. Interpreted by me at 0947.[] Radiology/Procedures Radiology/Procedures PROCEDURE: PORTABLE CHEST 1V EXAM: CHEST 1 VIEW History: Syncope COMPARISON: 03/08/2018 TECHNIQUE: Single portable radiograph of the chest FINDINGS: The cardiac silhouette is unremarkable. The lungs are clear bilaterally. The costophrenic sulci are clear and well demarcated. IMPRESSION: No radiographic evidence of an acute cardiopulmonary process. PROCEDURE: PORTABLE CHEST 1V EXAM: CHEST 1 VIEW History: Syncope COMPARISON: 03/08/2018 TECHNIQUE: Single portable radiograph of the chest FINDINGS: The cardiac silhouette is unremarkable. The lungs are clear bilaterally. The costophrenic sulci are clear and well demarcated. IMPRESSION: No radiographic evidence of an acute cardiopulmonary process. [] Course & Med Decision Making Course & Med Decision Making Pertinent Labs and Imaging studies reviewed. (See chart for details) ED course: Patient arrived, was placed in bed, and tolerated exam well. IV access was established, orthostatic vital signs were obtained, and she was started on IV fluid therapy. She was transported to and from [place] with any complications. After the return of the laboratory and imaging findings, these were discussed with the patient who voiced understanding. Consultation was made with hospitalist service who graciously accepted the patient. She was admitted in improved condition. Medical decision makin-year-old female with a syncopal episode. It is of note that her blood systolic pressure decreased by approximately 40 points and she was symptomatic when orthostatic vital signs were being obtained. This may be related to the hydration status given her recent flulike illness. Also concerned about possible cardiac etiology because she did not know that this was going to happen. [] Dragon Disclaimer Dragon Disclaimer This electronic medical record was generated, in whole or in part, using a voice recognition dictation system. Departure Departure: Impression: Primary Impression: Syncopal episodes Additional Impression: Dehydration Disposition: 09 ADMITTED INPATIENT Admitting Physician: Tyler Maravilla Condition: IMPROVED Referrals: EVE HANCOCK (PCP) Problem Qualifiers Primary Impression: Syncopal episodes Syncope type: unspecified Qualified Codes: R55 - Syncope and collapse ERICK ESPAÑA DO Mar 24, 2019 09:45
[2019-03-24 09:58] LABS: BASO # 0.1 x10^3/uL (0.0-0.2); BASO % 1 % (0-3); EOS # 0.1 x10^3/uL (0.0-0.7); EOS % 3 % (0-3); HEMATOCRIT 35.4 % (36.0-47.0); HEMOGLOBIN 11.6 g/dL (12.0-15.5); LYMPH # 1.8 x10^3/uL (1.0-4.8); LYMPH % 35 % (24-48); MEAN CORPUSCULAR HEMOGLOBIN 28 pg (25-35); MEAN CORPUSCULAR HGB CONC 33 g/dL (31-37); MEAN CORPUSCULAR VOLUME 85 fL (79-100); MONO # 0.4 x10^3/uL (0.0-1.1); MONO % 8 % (0-9); NEUT # 2.6 x10^3uL (1.8-7.7); NEUT % 53 % (31-73); PLATELET COUNT 229 x10^3/uL (140-400); RED BLOOD COUNT 4.15 x10^6/uL (3.50-5.40); RED CELL DISTRIBUTION WIDTH 14.7 % (11.5-14.5)
[2019-03-24] MEDS ORDERED: IV NORMAL SALINE 1,000ML 1,000 ML IV ONE (10:00)
[2019-03-24 10:01] LABS: GFR 66.3; POTASSIUM 3.9 mmol/L (3.5-5.1)
[2019-03-24 10:14] LABS: ALBUMIN 3.8 g/dL (3.4-5.0); ALBUMIN/GLOBULIN RATIO 0.9 (1.0-1.7); TOTAL BILIRUBIN 0.2 mg/dL (0.2-1.0)
[2019-03-24 10:16] LABS: BARBITURATES NEG (NEG); BENZODIAZEPINES NEG (NEG); CANNABINOIDS POS (NEG); COCAINE NEG (NEG); METHADONE NEG (NEG); OPIATES NEG (NEG); PHENCYCLIDINE NEG (NEG)
[2019-03-24 10:18] LABS: AMPHETAMINE/METHAMPHETAMINE NEG (NEG)
--- NOTE | 2019-03-24 10:19 | RAD ---
EXAM: CHEST 1 VIEW History: Syncope COMPARISON: 03/08/2018 TECHNIQUE: Single portable radiograph of the chest FINDINGS: The cardiac silhouette is unremarkable. The lungs are clear bilaterally. The costophrenic sulci are clear and well demarcated. IMPRESSION: No radiographic evidence of an acute cardiopulmonary process. Electronically signed by: Naseem Dior MD (03/24/2019 10:16 AM) [facility]
[2019-03-24 10:29] LABS: BILIRUBIN,URINE NEG (NEG); CLARITY,URINE HAZY; COLOR,URINE YELLOW; GLUCOSE,URINE NEG (NEG)
[2019-03-24 10:30] LABS: BACTERIA,URINE FEW /HPF (0-FEW); NITRITE,URINE NEG (NEG); SQUAMOUS EPITHELIAL CELL,UR MOD /LPF; UROBILINOGEN,URINE 0.2 mg/dL (0.2 mg/dL)
--- NOTE | 2019-03-24 10:35 | RAD ---
Examination: CT head and cervical spine without contrast CT HEAD INDICATION: Syncope, neck pain COMPARISON: None Available. Exposure: One or more of the following individualized dose reduction techniques were utilized for this examination: 1. Automated exposure control 2. Adjustment of the mA and/or kV according to patient size 3. Use of iterative reconstruction technique TECHNIQUE: 5 mm contiguous axial images were obtained from the skull base to the vertex in both bone and soft tissue algorithm. FINDINGS: No abnormal attenuation within the brain parenchyma. No evidence of acute intracranial hemorrhage. No extra-axial fluid collections. No mass effect or midline shift. Ventricular size is appropriate. Basal cisterns are patent. No fractures identified.Berry-white differentiation is preserved.Globes and orbits are within normal limits. Paranasal sinuses and mastoid air cells are clear. IMPRESSION: No acute intracranial findings. CT CERVICAL SPINE INDICATION: Neck pain COMPARISON: None Available. Technique: 2.5 mm contiguous axial images were obtained from the skull base through the cervicothoracic junction in both bone and soft tissue algorithm. Additional sagittal and coronal reconstructions were also performed. FINDINGS: Vertebral body height and alignment are maintained. Cervical lordosis is preserved. The lateral masses of C1 are aligned upon C2. No fractures identified. The bony canal is patent throughout. Mild intervertebral disc height loss identified in the cervical spine particularly at C2-C3, C5-C6 vertebral levels with mild disc bulges. The bilateral facets are well aligned. The paraspinous soft tissues are unremarkable. Visualized intracranial contents are unremarkable. Lung apices are clear. IMPRESSION: 1. No acute fracture of the cervical spine. Correlate clinically. 2. Mild degenerative changes cervical spine most at C5-C6 vertebral level. Electronically signed by: Naseem Dior MD (03/24/2019 10:32 AM) [facility]
[2019-03-24] MEDS: IV NORMAL SALINE 1,000ML 1,000 ML IV SCH ×2 (11:20→17:27)
[2019-03-24] MEDS ORDERED: ACETAMINOPHEN 325 MG TABLET PO PRN ×2 (11:30→17:15)
[2019-03-24] MEDS ORDERED: ONDANSETRON PF 4 MG/2 ML VIAL. IV PRN (11:30)
[2019-03-24 13:19] VITALS: BP 147/74
--- NOTE | 2019-03-24 14:41 | HP ---
ADMIT DATE: 03/24/2019 HISTORY OF PRESENT ILLNESS: The patient is a 68-year-old female patient, who was brought to the Emergency Room after she had had a syncopal episode that occurred while she was walking with her dog. The emergency medical service personnel says according to the daughter that she did not hit her head. The patient is complaining of head pain and right sided neck pain. Denied any chest pain or palpitation. She reports hearing from her daughter that she was unconscious for approximately 5 minutes. No reported seizure activity. No loss of bowel or bladder control. No numbness or tingling. Pain is currently mild in the head and neck. No nausea. No vomiting. Nothing makes symptoms better or worse. No previous history of syncopal episode. She was evaluated in the Emergency Room. Her EKG showed that she was in sinus rhythm with heart rate of 62 beats per minute, left axis deviation, corrected QT interval of 408 milliseconds, no ST segment elevation. She has had chest x-ray, which showed that the cardiac silhouette is unremarkable, lungs are clear, costophrenic sulci are clear and well demarcated. She has had lab work done that was unremarkable except for the fact that she was positive for marijuana on her toxic screen. The patient was admitted for further evaluation and treatment of her syncopal episode. PAST MEDICAL HISTORY: Significant for hypertension, hyperlipidemia. She had had glaucoma and bronchial asthma, fibromyalgia as well as vertigo. PAST SURGICAL HISTORY: Significant for tubal ligation, total abdominal hysterectomy, bilateral cataract extraction and appendectomy. ALLERGIES: She is allergic to HYDROCODONE and OXYCODONE. MEDICATIONS: She is on loratadine 10 mg once a day, albuterol sulfate 2.5 mg by nebulizer every 4 hours, atorvastatin calcium 40 mg at bedtime, lisinopril 10 mg once a day, diclofenac sodium 50 mg 3 times a day, oxycodone/APAP 5/325 one tablet 3 times a day, tramadol/acetaminophen 1 tablet every 4-6 hours, clonazepam 0.5 mg twice a day, topiramate 100 mg twice a day, quetiapine fumarate 200 mg at bedtime, chlorhexidine gluconate 15 mL t.i.d. brinzolamide for Azopt 1 drop to both eyes twice a day, bisacodyl 5 mg tablet once a day, magnesium citrate 1 ampule once. She is on ondansetron 4 mg every 8 hours, prednisone 40 mg p.o. daily for 5 days, nystatin, triamcinolone 1 application topically twice a day, pyridoxine 25 mg daily and multivitamin 1 tablet once a day. REVIEW OF SYSTEMS: As per history of present illness. FAMILY HISTORY: She has 5 sisters, 2 brothers. Her father at age 25. Mother at age of 40 years of breast cancer. SOCIAL HISTORY: She is , has 2 daughters. She smokes 7-10 cigarettes a day. She does not drink alcohol, but smokes marijuana. PHYSICAL EXAMINATION: GENERAL: On arrival to the Emergency Room, the patient looked well and was clearly in no apparent distress. She was pale, but no jaundice, cyanosis or thyromegaly. No jugular venous distention. No lower limb edema. VITAL SIGNS: Her heart rate was 81, blood pressure was 147/74, temperature was 98.2, respiratory rate was 18 and oxygen saturation was 98% on room air. HEAD, EYES, EARS, NOSE AND THROAT: Showed normocephalic, atraumatic. NECK: Supple. HEART: Showed normal first and second heart sounds. No gallop or murmur. CHEST: Shows central trachea. She has pain on palpation in her mid sternum on both sides of the sternal area, chest garcia as well as epigastric area. She has equal bilateral chest expansion, air entry, vesicular sounds. No crepitation or rhonchi. ABDOMEN: Distended, soft, nontender except in the epigastric area. No guarding or rigidity. No organomegaly. All hernial orifices intact. Bowel sounds normal. NEUROLOGIC: She is awake, alert, responding appropriately. All cranial nerves intact. EXTREMITIES: She moves extremities without difficulty. LABORATORY WORK: Her lab work showed white cell count 5000, hemoglobin 11.6, hematocrit 35.4, MCV 85 and platelet count of 229,000 with normal manual differential. Her chemistry showed serum sodium 139, potassium 3.9, chloride 107, bicarbonate 24, anion gap of 8, BUN 18, creatinine 1, estimated GFR was 66 mL per minute. Her glucose 102, calcium was 9. Total bilirubin, AST, ALT, alkaline phosphatase were normal. Beta natriuretic peptide was 99. Total protein was 8, albumin was 3.8. Her prothrombin time, INR and aPTT were normal. Urinalysis was essentially unremarkable and toxic screen showed that she was positive for marijuana. IMAGING: Her chest x-ray showed the cardiac silhouette is unremarkable. The lungs are clear bilaterally. Costophrenic sulci are clear and well demarcated. CT scan of the head and cervical spine showed that there is no acute intracranial finding. There is no acute fracture of the cervical spine, correlate clinically. Mild degenerative changes of cervical spine, mostly at C5-C6 vertebral level. PLAN: To continue with IV fluid. We will repeat her orthostatics and check her fasting lipid profile tomorrow, consult the Cardiology team. BRADY SLAUGHTER MD DR: BRANDY/evans JOB#: [id number] / [id number]
[2019-03-24 15:36] VITALS: BP 148/77
[2019-03-24] MEDS ORDERED: NON FORMULARY ITEM (Tramadol Hcl/Acetaminophen (Tramadol-Acetaminophn 37.5-325) 1 TAB) PO SCH (17:00)
[2019-03-24] MEDS ORDERED: DICLOFENAC SODIUM 25 MG TABLET.DR PO PRN (17:15)
[2019-03-24] MEDS ORDERED: traMADol 50 MG TABLET PO PRN (17:15)
--- NOTE | 2019-03-24 17:38 | RAD ---
Ultrasound carotid arteries 03/24/2019. Reason for exam: Syncope. Color Doppler and spectral waveform analysis was performed along with real-time grayscale technique. Velocities were obtained in centimeters per second. Carotid stenoses are graded per NASCET criteria. FINDINGS: Minimal plaque is present at the carotid bulbs. Flow in the vertebral arteries is antegrade. The following velocity measurements were obtained: CCA peak: Right, 61, left, 77. ICA peak: Right, 65, left, 61. IC/CC ratio: Right, 1.1, left, less than 1. IMPRESSION: No evidence of significant stenosis. Electronically signed by: Nigel Thomason Jr., MD (03/24/2019 5:36 PM) [facility]
[2019-03-24 19:25] VITALS: BP 137/85
--- NOTE | 2019-03-24 19:49 | RAD ---
EXAM: Supine AP view of the abdomen DATE: 03/24/2019 6:10 PM INDICATION: Abdomen pain, bloating, no bowel movement x 3 weeks COMPARISON: No Prior FINDINGS: No abnormal small or large bowel dilatation. Large volume colonic stool content. No abnormal soft tissue mass effect. No suspicious calcifications are seen. Evaluation for free intraperitoneal gas is limited on this supine exam. IMPRESSION: 1. No evidence for bowel obstruction. 2. Large volume colonic stool content. Electronically signed by: Alfredo Salcedo MD (03/24/2019 7:46 PM) [facility]
[2019-03-24] MEDS: oxyCODONE/APAP 5/325 1 TAB TABLET PO PRN (20:01)
[2019-03-24] MEDS: clonazePAM 0.5 MG TABLET PO SCH (20:01)
[2019-03-24] MEDS: TOPIRAMATE 100 MG TABLET. PO SCH (20:01)
[2019-03-24] MEDS ORDERED: MAGNESIUM HYDROXIDE 2,400 MG/30 ML ORAL.SUSP. PO ONE (20:15)
[2019-03-24] MEDS ORDERED: ATORVASTATIN CALCIUM 20 MG TABLET PO SCH (21:00)
[2019-03-24] MEDS ORDERED: QUEtiapine 100 MG TABLET. PO SCH (21:00)
[2019-03-24 22:51] VITALS: BP 123/75
[2019-03-25] MEDS: IV NORMAL SALINE 1,000ML 1,000 ML IV SCH (02:45)
[2019-03-25 06:23] LABS: BASO % 0 % (0-3); EOS # 0.3 x10^3/uL (0.0-0.7); EOS % 4 % (0-3); HEMATOCRIT 32.7 % (36.0-47.0); HEMOGLOBIN 10.7 g/dL (12.0-15.5); LYMPH % 50 % (24-48); MEAN CORPUSCULAR HEMOGLOBIN 28 pg (25-35); MEAN CORPUSCULAR HGB CONC 33 g/dL (31-37); MEAN CORPUSCULAR VOLUME 86 fL (79-100); MONO # 0.5 x10^3/uL (0.0-1.1); MONO % 8 % (0-9); NEUT # 2.3 x10^3uL (1.8-7.7); NEUT % 37 % (31-73); PLATELET COUNT 207 x10^3/uL (140-400); RED BLOOD COUNT 3.79 x10^6/uL (3.50-5.40); RED CELL DISTRIBUTION WIDTH 14.8 % (11.5-14.5)
[2019-03-25] MEDS: oxyCODONE/APAP 5/325 1 TAB TABLET PO PRN (06:24)
[2019-03-25 06:26] LABS: CALCIUM 8.2 mg/dL (8.5-10.1); CREATININE 0.7 mg/dL (0.6-1.0); GFR 100.1; MAGNESIUM 1.9 mg/dL (1.8-2.4); POTASSIUM 3.7 mmol/L (3.5-5.1)
[2019-03-25 06:33] VITALS: BP 134/75
--- NOTE | 2019-03-25 07:25 | PDOC2 ---
CARDIAC CONSULT DATE OF CONSULT Date Of Consult DATE: 03/25/19 TIME: 07:20 REASON FOR CONSULT Reason for Consult Syncope REFERRING PHYSICIAN Referring Physician Dr. Maravilla SOURCE Source: Chart review, Patient HPI History of Present Illness This is a 68 yo female who presented secondary to syncopal episode while walking to the [employer] with her daughter. Patient reports they had just started walking and she simply "feel out". No recollection of any precipitating dizziness, diaphoresis, chest pain, or shortness of breath. No recent fevers or illness. No previous history of coronary or valvular disease. No further syncopal episodes or dizziness since admission. No acute events on tele. PAST MEDICAL HISTORY Cardiovascular: HTN, hyperipidemia Pulmonary: Asthma GI: No pertinent hx Heme/Onc: No pertinent hx Psych: Anxiety, Depression Musculoskeletal: Osteoarthritis Infectious disease: No pertinent hx Renal/: No pertinent hx Endocrine: No pertinent hx PAST SURGICAL HISTORY Past Surgical History: Cataract Removal, Tubal Ligation, Hysterectomy FAMILY HISTORY Family History: Hypertension SOCIAL HISTORY Smoke: 1 pack per day ALCOHOL: none Drugs: Marijuana Lives: with Family CURRENT MEDICATIONS Current Medications Current Medications Sodium Chloride 1,000 ml @ 1,000 mls/hr 1X ONCE IV Last administered on 03/24/19at 10:00; Start 03/24/19 at 10:00; Stop 03/24/19 at 10:59; Status DC Ondansetron HCl (Zofran) 4 mg PRN Q4HRS PRN IV NAUSEA/VOMITING; Start 03/24/19 at 11:30; Stop 03/25/19 at 11:29 Sodium Chloride 1,000 ml @ 125 mls/hr Q8H IV Last administered on 03/25/19at 02:45; Start 03/24/19 at 11:20; Stop 03/25/19 at 11:19 Acetaminophen (Tylenol) 650 mg PRN Q4HRS PRN PO FEVER; Start 03/24/19 at 11:30; Stop 03/25/19 at 11:29 Clonazepam (KlonoPIN) 0.5 mg BID PO Last administered on 03/24/19at 20:01; Start 03/24/19 at 21:00 Oxycodone/ Acetaminophen (Percocet 5/325) 1 tab PRN TID PRN PO PAIN Last administered on 03/25/19at 06:24; Start 03/24/19 at 17:00 Prednisone (Prednisone) 40 mg DAILY PO ; Start 03/25/19 at 09:00 Quetiapine Fumarate (SEROquel) 200 mg QHS PO Last administered on 03/24/19at 20:01; Start 03/24/19 at 21:00 Topiramate (Topamax) 100 mg BID PO Last administered on 03/24/19at 20:01; Start 03/24/19 at 21:00 Atorvastatin Calcium (Lipitor) 40 mg QHS PO Last administered on 03/24/19at 20:01; Start 03/24/19 at 21:00 Diclofenac Sodium (Voltaren) 50 mg PRN TID PRN PO PAIN; Start 03/24/19 at 17:15 Cetirizine HCl (ZyrTEC) 10 mg DAILY PO ; Start 03/25/19 at 09:00 Non-Formulary Medication (Tramadol Hcl/ Acetaminophen (Tramadol-Acetaminophn 37.5-325)) 1 tab Q4-6HRS PO ; Start 03/24/19 at 17:00; Status UNV Multivitamins/ Calcium (Thera-M Plus) 1 tab DAILY PO ; Start 03/25/19 at 09:00 Tramadol HCl (Ultram) 50 mg PRN Q6HRS PRN PO PAIN; Start 03/24/19 at 17:15 Acetaminophen (Tylenol) 650 mg PRN Q6HRS PRN PO PAIN / TEMP; Start 03/24/19 at 17:15 Magnesium Hydroxide (Milk Of Magnesia) 2,400 mg 1X ONCE PO Last administered on 03/24/19at 20:14; Start 03/24/19 at 20:15; Stop 03/24/19 at 20:16; Status DC Active Scripts Active Zofran Odt (Ondansetron) 4 Mg Tab.rapdis 1 Tab SL Q8HRS Tramadol-Acetaminophn 37.5-325 (Tramadol Hcl/Acetaminophen) 1 Each Tablet 1 Tab PO Q4-6HRS Percocet 5-325 Mg Tablet (Oxycodone Hcl/Acetaminophen) 1 Each Tablet 1 Tab PO TID PRN Reported Lisinopril 10 Mg Tablet 1 Tab PO DAILY Multi-Vitamin Daily (Multivitamin) 1 Each Tablet 1 Each PO Azopt (Brinzolamide) 10 Ml Drops.susp 1 Drop EACHEYE BID Lipitor (Atorvastatin Calcium) 40 Mg Tablet 1 Tab PO QHS Diclofenac Potassium 50 Mg Tablet 1 Tab PO PRN TID Topamax (Topiramate) 100 Mg Tablet 1 Tab PO BID Clonazepam 0.5 Mg Tablet 1 Tab PO BID Loratadine 10 Mg Tablet 1 Tab PO DAILY Vitamin B-6 (Pyridoxine Hcl) 25 Mg Tablet 25 Mg PO DAILY Seroquel (Quetiapine Fumarate) 100 Mg Tablet 2 Tab PO QHS ALLERGIES Allergies: Coded Allergies: hydrocodone (Unverified Allergy, Intermediate, itching, 09/13/13) oxycodone (Unverified Allergy, Intermediate, ITCHING, takes PERCOCET at home, 05/12/14) ROS Review of Systems 14 point ROS conducted with pertinent positives noted above in HPI PHYSICAL EXAM General: Alert, Oriented X3, Cooperative, No acute distress HEENT: Atraumatic, Mucous membr. moist/pink Lungs: Clear to auscultation, Normal air movement Heart: Regular rate, Normal S1, Normal S2, No murmurs Abdomen: Soft, No tenderness Extremities: No edema, Normal pulses Skin: No breakdown Neuro: Normal speech, Sensation intact Psych/Mental Status: Mental status NL, Mood NL MUSCULOSKELETAL: Osteoarthritic changes both hands VITALS Vital Signs Vital Signs Date Time Temp Pulse Resp B/P (MAP) Pulse Ox O2 Delivery O2 Flow Rate FiO2 03/25/19 06:33 97.5 63 18 134/75 (94) 96 Room Air LABS LABS Laboratory Tests Test 03/24/19 09:38 03/24/19 09:55 03/24/19 17:00 03/25/19 06:05 White Blood Count 5.0 x10^3/uL (4.0-11.0) 6.0 x10^3/uL (4.0-11.0) Red Blood Count 4.15 x10^6/uL (3.50-5.40) 3.79 x10^6/uL (3.50-5.40) Hemoglobin 11.6 g/dL (12.0-15.5) 10.7 g/dL (12.0-15.5) Hematocrit 35.4 % (36.0-47.0) 32.7 % (36.0-47.0) Mean Corpuscular Volume 85 fL (79-100) 86 fL (79-100) Mean Corpuscular Hemoglobin 28 pg (25-35) 28 pg (25-35) Mean Corpuscular Hemoglobin Concent 33 g/dL (31-37) 33 g/dL (31-37) Red Cell Distribution Width 14.7 % (11.5-14.5) 14.8 % (11.5-14.5) Platelet Count 229 x10^3/uL (140-400) 207 x10^3/uL (140-400) Neutrophils (%) (Auto) 53 % (31-73) 37 % (31-73) Lymphocytes (%) (Auto) 35 % (24-48) 50 % (24-48) Monocytes (%) (Auto) 8 % (0-9) 8 % (0-9) Eosinophils (%) (Auto) 3 % (0-3) 4 % (0-3) Basophils (%) (Auto) 1 % (0-3) 0 % (0-3) Neutrophils # (Auto) 2.6 x10^3uL (1.8-7.7) 2.3 x10^3uL (1.8-7.7) Lymphocytes # (Auto) 1.8 x10^3/uL (1.0-4.8) 3.0 x10^3/uL (1.0-4.8) Monocytes # (Auto) 0.4 x10^3/uL (0.0-1.1) 0.5 x10^3/uL (0.0-1.1) Eosinophils # (Auto) 0.1 x10^3/uL (0.0-0.7) 0.3 x10^3/uL (0.0-0.7) Basophils # (Auto) 0.1 x10^3/uL (0.0-0.2) 0.0 x10^3/uL (0.0-0.2) Prothrombin Time 10.5 SEC (9.4-11.4) Prothromb Time International Ratio 1.0 (0.9-1.1) Activated Partial Thromboplast Time 21 SEC (23-33) Sodium Level 139 mmol/L (136-145) 142 mmol/L (136-145) Potassium Level 3.9 mmol/L (3.5-5.1) 3.7 mmol/L (3.5-5.1) Chloride Level 107 mmol/L (98-107) 110 mmol/L (98-107) Carbon Dioxide Level 24 mmol/L (21-32) 21 mmol/L (21-32) Anion Gap 8 (6-14) 11 (6-14) Blood Urea Nitrogen 18 mg/dL (7-20) 14 mg/dL (7-20) Creatinine 1.0 mg/dL (0.6-1.0) 0.7 mg/dL (0.6-1.0) Estimated GFR (Cockcroft-Gault) 66.3 100.1 BUN/Creatinine Ratio 18 (6-20) Glucose Level 102 mg/dL (70-99) 90 mg/dL (70-99) Calcium Level 9.0 mg/dL (8.5-10.1) 8.2 mg/dL (8.5-10.1) Total Bilirubin 0.2 mg/dL (0.2-1.0) Aspartate Amino Transf (AST/SGOT) 21 U/L (15-37) Alanine Aminotransferase (ALT/SGPT) 21 U/L (14-59) Alkaline Phosphatase 115 U/L (46-116) UD-Htg-D-Type Natriuretic Peptide 99 pg/mL (0-124) Total Protein 8.0 g/dL (6.4-8.2) Albumin 3.8 g/dL (3.4-5.0) Albumin/Globulin Ratio 0.9 (1.0-1.7) Thyroid Stimulating Hormone (TSH) 1.370 uIU/mL (0.358-3.740) Urine Collection Type Unknown Urine Color Yellow Urine Clarity Hazy Urine pH 6.0 Urine Specific [place] 1.010 Urine Protein Neg (NEG-TRACE) Urine Glucose (UA) Neg mg/dL (NEG) Urine Ketones (Stick) Neg mg/dL (NEG) Urine Blood Trace (NEG) Urine Nitrite Neg (NEG) Urine Bilirubin Neg (NEG) Urine Urobilinogen Dipstick 0.2 mg/dL (0.2 mg/dL) Urine Leukocyte Esterase Small (NEG) Urine RBC 1-2 /HPF (0-2) Urine WBC 1-4 /HPF (0-4) Urine Squamous Epithelial Cells Mod /LPF Urine Bacteria Few /HPF (0-FEW) Urine Mucus Slight /LPF Urine Opiates Screen Neg (NEG) Urine Methadone Screen Neg (NEG) Urine Barbiturates Neg (NEG) Urine Phencyclidine Screen Neg (NEG) Urine Amphetamine/Methamphetamine Neg (NEG) Urine Benzodiazepines Screen Neg (NEG) Urine Cocaine Screen Neg (NEG) Urine Cannabinoids Screen Pos (NEG) Urine Ethyl Alcohol Neg (NEG) Troponin I Quantitative < 0.017 ng/mL (0-0.055) Magnesium Level 1.9 mg/dL (1.8-2.4) ASSESSMENT/PLAN Assessment/Plan 1. Syncope; etiology unclear. No acute events on tele or dizziness since admission 2. Hypertension; controlled 3. Hyperlipidemia; statin 4. Depression/Anxiety 5. Chronic pain 6. Marijuana use 7. Tobaccoism ;discussed/encouraged cessation Recommendations Echo to assess LV function Orthostatic VS Lipids, TSH Consider outpatient event monitor to r/o contributing arrhythmias Patient reports she had to leave by 1 today; if echo cannot be completed by this time, we can arrange it on an outpatient basis. CORRY SOUZA APRN Mar 25, 2019 07:25
[2019-03-25 07:32] VITALS: BP 103/69
[2019-03-25 07:35] VITALS: BP 116/63
[2019-03-25 07:36] VITALS: BP 108/72
[2019-03-25] MEDS: TOPIRAMATE 100 MG TABLET. PO SCH (08:35)
[2019-03-25] MEDS: clonazePAM 0.5 MG TABLET PO SCH (08:35)
[2019-03-25] MEDS ORDERED: CETIRIZINE HCL 10 MG TABLET PO SCH (09:00)
[2019-03-25] MEDS ORDERED: predniSONE 20 MG TABLET PO SCH (09:00)
[2019-03-25] MEDS ORDERED: MULTIVITAMIN with MINERAL TABLET. PO SCH (09:00)
[2019-03-25 09:41] VITALS: BP 139/79
--- NOTE | 2019-03-25 14:09 | DS ---
DATE OF DISCHARGE: 03/25/2019 HOSPITAL COURSE: The patient is a 68-year-old -[place] female patient who was admitted with a syncopal episode. She denied any chest pain or palpitation. No reported seizure activity, no loss of bowel or bladder control. No numbness or tingling. No nausea or vomiting. She has no previous history of similar episode. In the Emergency Room, she has marked postural hypotension with pulse pressure almost 40 mm difference. She was treated with IV fluid and continued all her other medications. We did repeat her orthostatic this morning and there was no evidence of any postural hypotension. Blood pressure lying, sitting and standing are the same without much difference. The patient has been up and about walking with standby assist. Denied any dizziness, lightheadedness, or vertigo and the plan was to discharge her home to follow with the cardiology team for an event monitor to be done as an outpatient as well as an echocardiogram. She did have bilateral carotid Doppler ultrasound, which showed no evidence of significant stenosis. Did complain of abdominal pain and bloating and a KUB showed no evidence of bowel obstruction with large volume colonic stool content, the patient has multiple bowel movements and she remained hemodynamically stable, has had no further episode of syncope, the telemetry showed no evidence of any arrhythmias or high-grade heart block, a decision was made to discharge her home to follow with the Cardiology as an outpatient. PHYSICAL EXAMINATION: GENERAL: When I examined her, she looked somewhat pale, but no jaundice, cyanosis or thyromegaly. No jugular venous distention. No limb edema. VITAL SIGNS: Her heart rate was 63, blood pressure was 139/79, temperature was 97.9, respiratory rate was 20, and oxygen saturation was 97%. HEAD, EYES, EARS, NOSE AND THROAT: Showed normocephalic, atraumatic. NECK: Supple. HEART: Showed normal first and second heart sounds with no gallop, rub or murmur. CHEST: Clear to auscultation. No crepitation or rhonchi. ABDOMEN: Slightly distended, soft, nontender. NEUROLOGIC: She was awake, alert, responding appropriately. All cranial nerves intact. She moves all extremities without difficulty. She ambulates without assistance or assistive devices. LABORATORY DATA: Her intake over the last 24 hours was 1770, no output was recorded. White cell count was 6000, hemoglobin 11, hematocrit 33, MCV 86 and platelet count 207,000. Her chemistry this morning showed a serum sodium 142, potassium 3.7, chloride 110, bicarbonate 21, anion gap of 11, BUN 14, creatinine 0.7, estimated GFR was 100 mL per minute. Her glucose was 90, calcium was 8.2, magnesium 1.9. Her serum triglycerides were 59, total cholesterol 119, LDL was 67, VLDL was 11, HDL was 41, the ratio was 2. Her TSH was normal at 1.37. DISCHARGE MEDICATIONS: She was discharged home to continue on following medication, atorvastatin calcium 40 mg at bedtime, brinzolamide for Azopt 1 drop to both eyes twice a day, clonazepam 0.5 mg twice a day, diclofenac potassium 50 mg 3 times a day as needed, lisinopril 10 mg daily, loratadine 10 mg once a day, multivitamin 1 tablet once a day, ondansetron for Zofran 4 mg every 8 hours, oxycodone/APAP 5/325 one tablet 3 times a day as needed, pyridoxine (vitamin B6) 25 mg once a day, quetiapine fumarate for Seroquel 200 mg at bedtime, topiramate 100 mg twice a day and tramadol/acetaminophen 37.5/325 one tablet every 4-6 hours as needed. ASSESSMENT: Syncopal episode, likely due to dehydration as her kidney function has definitely improved, although other possibilities are likely and the patient will be discharged for an outpatient event monitor as well as an echocardiogram to evaluate the left ventricular systolic function. Other medical problems: 1. Hypertension, well controlled. 2. Hyperlipidemia. 3. Depression and anxiety, chronic pain, marijuana use, tobaccoism. BRADY SLAUGHTER MD DR: BRANDY/evans JOB#: [id number] / [id number]
--- NOTE | 2019-03-26 06:05 | EKG ---
[address] [id number] Test Date: 2019-03-24 Test Time: 09:43:13 Pat Name: IRMA SCHUMACHER Department: Room: 124 A Gender: F Elevator Adjuster: : 1950 Requested By: ERICK ESPAÑA Order Number: [id number] Reading MD: Measurements Intervals [place] Rate: 62 P: 50 MO: 152 QRS: -8 QRSD: 86 T: 22 QT: 400 QTc: 408 Interpretive Statements SINUS RHYTHM LEFTWARD AXIS OTHERWISE NORMAL ECG RI6.01 No previous ECG available for comparison
== END 2019-03-25 13:51 | disposition home or self-care (01) ==
LOC: ER 09:33 → INTOOBSV 12:49 → 1 SOUTH 12:49
PROVIDERS: ADMIT Internal Medicine; ATTEND Internal Medicine
DX: R55 Syncope and collapse (principal); E86.0 Dehydration; J45.909 Unspecified asthma, uncomplicated; M79.7 Fibromyalgia; K21.9 Gastro-esophageal reflux disease without esophagitis; I10 Essential (primary) hypertension; F32.9 Major depressive disorder, single episode, unspecified; F41.9 Anxiety disorder, unspecified; Z90.710 Acquired absence of both cervix and uterus
CPT/HCPCS: 36415; 70450; 71045; 72125; 74018; 80048; 80053; 80061; 80307; 81001; 83735; 83880; 84443; 84484; 85025; 85610; 85730; 87086; 93005; 93880; 96360; 96361; 99284; G0378; J7512; G0379; J7030

== ENCOUNTER → 2019-05-06 | Outpatient (CLI) | payer MEDICARE, OTHER ==
[~2019-05-06] MED LIST changes: +MAGN296S68 PO; -MAGN296S9 PO
--- NOTE | 2019-05-06 11:57 | CARD ---
MR#: [id number] Date of Study: 05/06/2019 Ordering Physician: ISHA BLANK, Referring Physician: ISHA BLANK, Tech: Renee Horan [facility] APPROVED REPORT EXAM: Two-dimensional and M-mode echocardiogram with Doppler and color Doppler. Other Information Quality : AverageHR: 76bpm Rhythm : NSR INDICATION Syncope 2D DIMENSIONS RVDd3.0 (2.9-3.5cm)Left Atrium(2D)2.9 (1.6-4.0cm) IVSd0.9 (0.7-1.1cm)Aortic Root(2D)2.6 (2.0-3.7cm) LVDd4.3 (3.9-5.9cm)LVOT Diameter1.8 (1.8-2.4cm) PWd1.0 (0.7-1.1cm)LVDs2.8 (2.5-4.0cm) FS (%) 35.3 %SV54.4 ml LVEF(%)64.9 (>50%) M-Mode DIMENSIONS Left Atrium(MM)3.17 (2.5-4.0cm)Aortic Root2.91 (2.2-3.7cm) Aortic Valve AoV Peak Asaf.129.9cm/sAoV VTI21.9cm AO Peak GR.6.7mmHgLVOT Peak Asaf.102.9cm/s LVOT VTI 18.71cmAO Mean GR.4mmHg ROSELIA (VMAX)2.77hd6CDY (VTI)2.22cm2 Mitral Valve MV E Pfcnxcme64.0cm/sMV DECEL FKEP581ih MV A Jqfiihmd03.0cm/sE/A Ratio0.8 Pulmonary Valve PV Peak Vquvwrgy66.4cm/sPV Peak Grad.3mmHg LEFT VENTRICLE The left ventricle is normal size. There is normal left ventricular wall thickness. The left ventricu lar systolic function is normal and the ejection fraction is within normal range. The Ejection Fracti on is 60-65%. There is normal LV segmental wall motion. Transmitral Doppler flow pattern is Grade I-a bnormal relaxation pattern. RIGHT VENTRICLE The right ventricle is normal size. There is normal right ventricular wall thickness. The right ventr icular systolic function is normal. ATRIA The left atrium size is normal. The right atrium size is normal. The interatrial septum is intact wit h no evidence for an atrial septal defect or patent foramen ovale as noted on 2-D or Doppler imaging. AORTIC VALVE The aortic valve is mildly thickened but opens well. The aortic valve is trileaflet. Doppler and [place] r Flow revealed no significant aortic regurgitation. There is no significant aortic valvular stenosis . MITRAL VALVE The mitral valve is thickened but opens well. There is no evidence of mitral valve prolapse. There is no mitral valve stenosis. Doppler and Color-flow revealed trace mitral regurgitation. TRICUSPID VALVE The tricuspid valve is normal in structure and function. Doppler and Color Flow revealed trace tricus pid regurgitation. There is no tricuspid valve prolapse or vegetation. There is no tricuspid valve st enosis. PULMONIC VALVE Doppler and Color Flow revealed no pulmonic valvular regurgitation. There is no pulmonic valvular abby nosis. GREAT VESSELS The aortic root is normal in size. The ascending aorta is normal in size. The IVC is normal in size a nd collapses >50% with inspiration. PERICARDIAL EFFUSION There is no evidence of significant pericardial effusion. Critical Notification Critical Value: No <Conclusion> The left ventricular systolic function is normal and the ejection fraction is within normal range. Th e Ejection Fraction is 60-65%. There is normal LV segmental wall motion. Signed by : Isha Blank, Electronically Approved : 05/06/2019 09:17:31
== END | disposition home or self-care (01) ==
LOC: ECHO 08:37
PROVIDERS: ATTEND Internal Medicine Cardiovascular Disease
DX: I08.0 Rheumatic disorders of both mitral and aortic valves (principal)
CPT/HCPCS: 93306

== ENCOUNTER 2019-06-05 12:17 | Emergency (ER) | payer MEDICARE, OTHER ==
[~2019-06-05] VITALS: Ht 162.6 cm; Wt 86.3 kg
[2019-06-05 12:35] VITALS: BP 142/73
--- NOTE | 2019-06-05 12:41 | PHYS DOC ---
Past History Past Medical History: Asthma, Fibromyalgia, GERD, Hypertension, Other Additional Past Medical Histor: vertigo Past Surgical History: No Surgical History Smoking: Cigarettes, Less than 1pk/day Alcohol Use: None Drug Use: Marijuana Adult General Chief Complaint Chief Complaint: MULTIPLE COMPLAINTS HPI HPI Patient is a 5-year-old female presents to the emergency department for evaluation of diffuse myalgias, which have been gradually worsening over the past 4 weeks. She states that the symptoms began after she stopped taking lumbar spinal injections from pain management physician at [facility]. She has not had any fevers, chills, numbness, focal weakness, or any focal pain. She denies any chest pain, shortness of breath, abdominal pain, nausea, or vomiting. There are no alleviating or exacerbating factors to her symptoms. Her pain is all over, diffusely. Review of Systems Review of Systems Constitutional: Denies fever or chills [] Eyes: Denies change in visual acuity, redness, or eye pain [] HENT: Denies nasal congestion or sore throat [] Respiratory: Denies cough or shortness of breath [] Cardiovascular: The patient denies any shortness of breath, chest pain, palpitations, or orthopnea [] GI: Denies abdominal pain, nausea, vomiting, bloody stools or diarrhea [] : Denies dysuria or hematuria [] Musculoskeletal: Denies new back pain or joint pain [] Integument: Denies rash or skin lesions [] Neurologic: Denies headache, focal weakness or sensory changes [] Endocrine: Denies polyuria or polydipsia [] All other systems were reviewed and found to be within normal limits, except as documented in this note. Allergies Allergies Allergies Coded Allergies Type Severity Reaction Last Updated Verified hydrocodone Allergy Intermediate itching 09/13/13 No oxycodone Allergy Intermediate ITCHING, takes PERCOCET at home 05/12/14 No Physical Exam Physical Exam PHYSICAL EXAM: CONSTITUTIONAL: Well developed, well nourished HEAD: normocephalic, atraumatic EENT: PERRL, EOMI. Conjunctivae normal color, sclerae non-icteric; moist mucous membranes. NECK: Supple, non-tender; no meningismus. LUNGS: Lungs CTA, breathing even and unlabored. Normal air movement. HEART: Regular rate and rhythm, no murmur CHEST: No deformity; non-tender ABDOMEN: The abdomen is soft, and non-tender, no masses or bruits. EXTREM: Normal ROM; no deformity, no calf tenderness. Normal pulses palpable in all extremities. There is no pedal edema. MUSCULOSKELETAL: There is diffuse muscle tenderness to palpation through all muscles of the back and trunk. SKIN: No rash; no diaphoresis NEURO: Alert; normal speech and cognition; CN's grossly intact; strength grossly intact without focal deficit. BACK: No CVA TTP. EKG EKG [] Radiology/Procedures Radiology/Procedures [] Course & Med Decision Making Course & Med Decision Making Pertinent Labs and Imaging studies reviewed. (See chart for details) []Patient remains stable. I discussed test results, the need for close follow- up, and return precautions. Dragon Disclaimer Dragon Disclaimer This electronic medical record was generated, in whole or in part, using a voice recognition dictation system. Departure Departure: Impression: Primary Impression: Myalgia Disposition: 01 HOME, SELF-CARE Condition: STABLE Referrals: EVE HANCOCK (PCP) Patient Instructions: Fibromyalgia, Myalgia, Adult DELFINO MCMULLEN MD Jun 05, 2019 12:40
[2019-06-05 12:56] LABS: BASO # 0.1 x10^3/uL (0.0-0.2); BASO % 2 % (0-3); EOS # 0.3 x10^3/uL (0.0-0.7); EOS % 5 % (0-3); HEMATOCRIT 33.9 % (36.0-47.0); LYMPH # 2.4 x10^3/uL (1.0-4.8); LYMPH % 38 % (24-48); MEAN CORPUSCULAR HEMOGLOBIN 28 pg (25-35); MEAN CORPUSCULAR HGB CONC 33 g/dL (31-37); MEAN CORPUSCULAR VOLUME 87 fL (79-100); MONO # 0.4 x10^3/uL (0.0-1.1); MONO % 7 % (0-9); NEUT # 3.1 x10^3uL (1.8-7.7); NEUT % 48 % (31-73); PLATELET COUNT 220 x10^3/uL (140-400); RED BLOOD COUNT 3.88 x10^6/uL (3.50-5.40); RED CELL DISTRIBUTION WIDTH 14.9 % (11.5-14.5); WHITE BLOOD COUNT 6.4 x10^3/uL (4.0-11.0)
[2019-06-05 13:04] LABS: CALCIUM 8.8 mg/dL (8.5-10.1); GFR 66.3; POTASSIUM 3.3 mmol/L (3.5-5.1)
[2019-06-05 13:10] LABS: ALBUMIN 3.6 g/dL (3.4-5.0); MAGNESIUM 1.8 mg/dL (1.8-2.4); TOTAL BILIRUBIN 0.2 mg/dL (0.2-1.0); TOTAL PROTEIN 7.2 g/dL (6.4-8.2)
[2019-06-05] MEDS ORDERED: POTASSIUM CHLORIDE 20 MEQ TABLET.ER. PO ONE (13:30)
[2019-06-05 13:57] LABS: BILIRUBIN,URINE NEG (NEG); CLARITY,URINE CLOUDY; COLOR,URINE YELLOW; GLUCOSE,URINE NEG (NEG)
[2019-06-05 13:58] LABS: NITRITE,URINE NEG (NEG); UROBILINOGEN,URINE 0.2 mg/dL (0.2 mg/dL)
[2019-06-05 13:59] LABS: BACTERIA,URINE FEW /HPF (0-FEW); SQUAMOUS EPITHELIAL CELL,UR OCC /LPF; WBC,URINE OCC /HPF (0-4)
[2019-06-05 14:15] LABS: RBC,URINE 0 /HPF (0-2)
[2019-06-05] MEDS ORDERED: methylPREDNISolone SOD SUCC PF 125 MG/2 ML VIAL. IM ONE (14:30)
== END 2019-06-05 14:12 | disposition home or self-care (01) ==
LOC: ER 12:17
DX: M79.10 Myalgia, unspecified site (principal); J45.909 Unspecified asthma, uncomplicated; M79.7 Fibromyalgia; K21.9 Gastro-esophageal reflux disease without esophagitis; I10 Essential (primary) hypertension; F17.210 Nicotine dependence, cigarettes, uncomplicated; Z88.5 Allergy status to narcotic agent
CPT/HCPCS: 36415; 80053; 81001; 82550; 83735; 85025; 87086; 99283

== ENCOUNTER 2019-11-03 14:08 | Emergency (ER) | payer MEDICARE, OTHER ==
[~2019-11-03] VITALS: Ht 162.6 cm; Wt 86.3 kg
[~2019-11-03 14:08] MED LIST changes: -LISI1TAB19 PO; +LISI1TAB37 PO
[2019-11-03 14:28] VITALS: BP 160/82
[2019-11-03 15:27] LABS: BACTERIA,URINE FEW /HPF (0-FEW); BILIRUBIN,URINE NEG (NEG); CLARITY,URINE CLOUDY; COLOR,URINE YELLOW; GLUCOSE,URINE NEG (NEG); NITRITE,URINE NEG (NEG); SQUAMOUS EPITHELIAL CELL,UR MANY /LPF; TRICHOMONAS,URINE PRESENT
--- NOTE | 2019-11-03 15:34 | PHYS DOC ---
Past History Past Medical History: Asthma, Fibromyalgia, GERD, Hypertension, Other Additional Past Medical Histor: vertigo Past Surgical History: No Surgical History Smoking: Cigarettes, Less than 1pk/day Alcohol Use: None Drug Use: Marijuana Adult General Chief Complaint Chief Complaint: ALTERED MENTAL STATUS HPI HPI Patient is a 68-year-old female who presents for visual hallucinations. This is happened patient in the past, it has worsened over the last 7 days though. Nothing known makes it better or worse. Patient denies being in any pain, only symptom she has today is mild dysuria which is new for her. Denies any recent sexual encounters or vaginal discharge. Denies any constitutional symptoms, COVID contacts, or recent travel. Denies any falls. Review of Systems Review of Systems Fourteen body systems of review of systems have been reviewed. See HPI for pertinent positives and negative responses, other law all other systems are negative, non-pertinent or non-contributory Allergies Allergies Allergies Coded Allergies Type Severity Reaction Last Updated Verified hydrocodone Allergy Intermediate itching 09/13/13 No oxycodone Allergy Intermediate ITCHING, takes PERCOCET at home 05/12/14 No Physical Exam Physical Exam Constitutional: Well developed, well nourished, no acute distress, non-toxic appearance. HENT: Normocephalic, atraumatic, bilateral external ears normal, oropharynx moist, no oral exudates, nose normal. Eyes: PERRLA, EOMI, conjunctiva normal, no discharge. Neck: Normal range of motion, no tenderness, supple, no stridor. Cardiovascular:Heart rate regular, sinus rhythm, no murmurs rubs or gallops Lungs & Thorax: Bilateral breath sounds clear to auscultation Abdomen: Bowel sounds normal, soft, no tenderness, no masses, no pulsatile masses. Nonsurgical abdomen, no peritoneal signs Skin: Warm, dry, no erythema, no rash. Back: No tenderness, no CVA tenderness. Extremities: No tenderness, no cyanosis, no clubbing, ROM intact, no edema. Neurologic: Alert and oriented X 3, grossly normal motor & sensory function, no focal deficits noted. Negative Romberg. Normal gait Psychologic: Affect normal, judgement normal, mood normal. Current Patient Data Vital Signs Vital Signs Date Time Temp Pulse Resp B/P (MAP) Pulse Ox O2 Delivery O2 Flow Rate FiO2 11/03/19 14:28 98.7 107 16 160/82 (108) 98 Room Air Lab Results Laboratory Tests Test 11/03/19 14:30 Urine Collection Type Unknown Urine Color Yellow Urine Clarity Cloudy Urine pH 7.0 Urine Specific [place] 1.015 Urine Protein Neg Urine Glucose (UA) Neg mg/dL Urine Ketones (Stick) Trace mg/dL Urine Blood Neg Urine Nitrite Neg Urine Bilirubin Neg Urine Urobilinogen Dipstick 1.0 mg/dL Urine Leukocyte Esterase Mod Urine RBC 1-2 /HPF Urine WBC 11-20 /HPF Urine Squamous Epithelial Cells Many /LPF Urine Bacteria Few /HPF Urine Trichomonas Present Current Medications Medications (Trade) Dose Ordered Sig/Renay Route PRN Reason Start Time Stop Time Status Last Admin Dose Admin Metronidazole (Flagyl) 2,000 mg 1X ONCE PO 11/03/19 15:45 11/03/19 15:57 DC 11/03/19 16:04 EKG EKG [] Radiology/Procedures Radiology/Procedures [] Course & Med Decision Making Course & Med Decision Making Patient seen and evaluated by myself on arrival, well-appearing, self ambulatory without any gross defects noted Comprehensive history and physical exam obtained and non-concerning for acute pathology Pertinent Labs and Imaging studies reviewed. (See chart for details) Discussed diagnosis of urine trichomonas, given that patient is high risk for medication noncompliance, 2 g Flagyl administered prior to ED departure due to concern patient might not be able to remember prescribing course of medication. Discussed importance of having all sexual partners be treated for this STD as well. Patient's daughter was notified of infection as well to ensure this is performed Regarding patient's visual hallucinations that are not causing any gross problems, after review of patient's pillbox, patient has not been taking evening medications. Patient reports she often forgets to take them these because it is placed by her bed and she falls asleep prior to taking them. On review of patient's pillbox, patient has not taken her evening Seroquel for previous 6 nights. I strongly believe the patient's presenting symptoms are due to this. Patient does not have home health, and lives alone. Discussed at length ways for her to set herself up for success to ensure she does not forget to take her evening medications prior to sleeping. Patient has colonoscopy scheduled this upcoming week and has good access to her PCP. I advised patient to talk to PCP about setting up home health or other outpatient services to further assist patient comply with outpatient medication regiment Strict return precautions discussed with good understanding by patient, this was also relayed to daughter via nurse prior to ED departure. All questions and concerns addressed prior to departure Rae Disclaimer Rae Disclaimer This electronic medical record was generated, in whole or in part, using a voice recognition dictation system. Departure Departure: Impression: Primary Impression: Medication nonadherence due to psychosocial problem Additional Impression: Trichomonas infection Disposition: HOME/RESIDENCE PRIOR TO ADM Condition: STABLE Referrals: EVE HANCOCK (PCP) Additional Instructions: As discussed prior to ED departure, ensure you take your medications as scheduled daily As we discussed, place your pill pack by your refrigerator. Ensure you take your medications as directed at breakfast, lunch, dinner, and in the evening before you go to your bedroom to sleep As discussed, you were treated for your trichomonas infection prior to ED departure today, please follow-up with your PCP regarding this Please call your primary care physician tomorrow, on Monday, to schedule a follow-up appointment in the upcoming 1 to 5 days I would discuss outpatient options for medication assistance such as home health to ensure you are compliant with your medications in the outpatient setting, please discuss this with your PCP You have a colonoscopy this upcoming Monday, please do not forget that Justification of Admission: Justification of Admission: Justification of Admission Dx: N/A Problem Qualifiers CARINA SMITH DO Nov 03, 2019 15:34
[2019-11-03] MEDS ORDERED: metroNIDAZOLE 500 MG TABLET PO ONE (15:45)
== END 2019-11-03 16:05 | disposition home or self-care (01) ==
LOC: ER 14:08
DX: Z91.14 Patient's other noncompliance with medication regimen (principal); Z65.9 Problem related to unspecified psychosocial circumstances; A59.9 Trichomoniasis, unspecified; J45.909 Unspecified asthma, uncomplicated; M79.7 Fibromyalgia; K21.9 Gastro-esophageal reflux disease without esophagitis; I10 Essential (primary) hypertension; F17.210 Nicotine dependence, cigarettes, uncomplicated; Z88.5 Allergy status to narcotic agent
CPT/HCPCS: 81001; 87086; 99283

== ENCOUNTER 2020-04-08 13:14 | Emergency (ER) | payer MEDICARE, OTHER ==
[~2020-04-08] VITALS: Ht 162.6 cm; Wt 86.3 kg
--- NOTE | 2020-04-08 14:07 | PHYS DOC ---
Past History Past Medical History: Asthma, Fibromyalgia, GERD, Hypertension, Other Additional Past Medical Histor: vertigo (BELKYS CARR APRN) Past Surgical History: No Surgical History (BELKYS CARR APRN) Smoking: Cigarettes, Less than 1pk/day Alcohol Use: None Drug Use: Marijuana (BELKYS CARR APRN) General Adult EDM: Chief Complaint: ABNORMAL LABS HPI: HPI: Patient is a 69-year-old female who presents after stating she was seen in urgent care today and told she had to be seen in the ER. Patient is a poor historian and unable to tell me what she was needed to be seen for. "They told me something was low ". Patient has history of hypertension, seizures, cancer. Patient states she does not know what type of cancer she has and was diagnosed 2 months ago. Patient not currently receiving treatment. Patient denies any acute problems that she needs to be seen for in the ER today other than chronic back pain, which she sees pain management for. (BELKYS CARR APRN) Review of Systems: Review of Systems: Constitutional: Denies fever or chills Eyes: Denies change in visual acuity HENT: Denies nasal congestion or sore throat Respiratory: Denies cough or shortness of breath Cardiovascular: Denies chest pain or edema GI: Denies abdominal pain, nausea, vomiting, bloody stools or diarrhea : Denies dysuria Musculoskeletal: Reports chronic back pain, denies joint pain Integument: Denies rash Neurologic: Denies headache, focal weakness or sensory changes Endocrine: Denies polyuria or polydipsia Lymphatic: Denies swollen glands Psychiatric: Denies depression or anxiety (BELKYS CARR APRN) Allergies: Allergies: Allergies Coded Allergies Type Severity Reaction Last Updated Verified hydrocodone Allergy Unknown 04/08/20 Yes (BELKYS CARR APRN) Physical Exam: PE: Constitutional: Well developed, well nourished, no acute distress, non-toxic appearance. [] HENT: Normocephalic, atraumatic, bilateral external ears normal, oropharynx moist, no oral exudates, nose normal. [] Eyes: PERRLA, EOMI, conjunctiva normal, no discharge. [] Neck: Normal range of motion, no tenderness, supple, no stridor. [] Cardiovascular:Heart rate regular rhythm, no murmur [] Lungs & Thorax: Bilateral breath sounds clear to auscultation [] Abdomen: Bowel sounds normal, soft, no tenderness, no masses, no pulsatile masses. [] Skin: Warm, dry, no erythema, no rash. [] Back: tenderness, no CVA tenderness. [] Extremities: No tenderness, no cyanosis, no clubbing, ROM intact, no edema. [] Neurologic: Alert and oriented X 3, normal motor function, normal sensory function, no focal deficits noted. [] Psychologic: Affect normal, judgement normal, mood normal. [] (BELKYS CARR APRN) Current Patient Data: Vital Signs: Vital Signs Date Time Temp Pulse Resp B/P (MAP) Pulse Ox O2 Delivery O2 Flow Rate FiO2 04/08/20 13:27 98.7 73 18 107/68 (81) 100 Room Air (BELKYS CARR APRN) EKG: EKG: Sinus rhythm, heart rate 64 bpm, intervals normal, axis normal. Normal EKG otherwise [] (BELKYS CARR APRN) Radiology/Procedures: Radiology/Procedures: [] (BELKYS CARR APRN) Heart Score: Risk Factors: Risk Factors: DM, Current or recent (<one month) smoker, HTN, HLP, family history of CAD, obesity. Risk Scores: Score 0 - 3: 2.5% MACE over next 6 weeks - Discharge Home Score 4 - 6: 20.3% MACE over next 6 weeks - Admit for Clinical Observation Score 7 - 10: 72.7% MACE over next 6 weeks - Early Invasive Strategies (BELKYS CARR APRN) Course & Med Decision Making: Course & Med Decision Making Pertinent Labs and Imaging studies reviewed. (See chart for details) [] Patient seen in the emergency room with concern for abnormal lab values. Patient is poor historian and unable to recall what lab values were abnormal. Potassium is 3.2, 40 mEq of potassium given. All other labs within normal limits. EKG normal sinus rhythm. Patient denies any acute problems or complaints. Will instruct patient to follow-up with primary care in the next 48 hours for further evaluation. (BELKYS CARR APRN) Dragon Disclaimer: Dragon Disclaimer: This electronic medical record was generated, in whole or in part, using a voice recognition dictation system. (BELKYS CARR APRN) Attending Co-Sign I oversaw on the above date of service of this patient and discussed the care with the WELFARE MANAGER. Attempts were made to contact our urgent care in addition to local urgent care in [facility] but there are no records of patient visit nor concerning lab findings. I agree with the findings, plan of care, and disposition as documented. (CARINA SMITH DO) Departure Departure: Impression: Primary Impression: Anemia Additional Impression: Hypokalemia Disposition: 01 DC HOME SELF CARE/HOMELESS Condition: GOOD Referrals: EVE HANCOCK (PCP) Additional Instructions: You were seen in the emergency room today for abnormal labs per urgent care. Your potassium came back a little bit low and you were given potassium in the emergency room. All other labs were within normal range. Please follow-up with your primary care physician in the next 48 hours for further evaluation. Please return to the emergency room with any worsening symptoms or further concerns. BELKYS CARR APRN Apr 08, 2020 14:07 CARINA SMITH DO Apr 09, 2020 06:31
[2020-04-08 14:37] LABS: BASO % 1 % (0-3); EOS # 0.2 x10^3/uL (0.0-0.7); EOS % 4 % (0-3); HEMATOCRIT 34.6 % (36.0-47.0); HEMOGLOBIN 10.9 g/dL (12.0-15.5); LYMPH # 2.3 x10^3/uL (1.0-4.8); LYMPH % 53 % (24-48); MEAN CORPUSCULAR HEMOGLOBIN 27 pg (25-35); MEAN CORPUSCULAR HGB CONC 31 g/dL (31-37); MEAN CORPUSCULAR VOLUME 87 fL (79-100); MONO # 0.4 x10^3/uL (0.0-1.1); MONO % 10 % (0-9); NEUT # 1.4 x10^3uL (1.8-7.7); NEUT % 32 % (31-73); PLATELET COUNT 227 x10^3/uL (140-400); RED BLOOD COUNT 3.98 x10^6/uL (3.50-5.40); RED CELL DISTRIBUTION WIDTH 15.2 % (11.5-14.5); WHITE BLOOD COUNT 4.3 x10^3/uL (4.0-11.0)
[2020-04-08 14:46] LABS: CALCIUM 8.9 mg/dL (8.5-10.1); CREATININE 0.8 mg/dL (0.6-1.0); GFR 85.6; POTASSIUM 3.2 mmol/L (3.5-5.1)
--- NOTE | 2020-04-08 14:57 | EKG ---
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
[2020-04-08 14:59] LABS: ALBUMIN 3.4 g/dL (3.4-5.0); ALBUMIN/GLOBULIN RATIO 0.8 (1.0-1.7); TOTAL BILIRUBIN 0.1 mg/dL (0.2-1.0); TOTAL PROTEIN 7.6 g/dL (6.4-8.2)
[2020-04-08 15:12] VITALS: BP 105/64
[2020-04-08] MEDS ORDERED: POTASSIUM CHLORIDE 20 MEQ TABLET.ER. PO ONE (15:30)
== END 2020-04-08 15:49 | disposition home or self-care (01) ==
LOC: ER 13:14
DX: D64.9 Anemia, unspecified (principal); E87.6 Hypokalemia; G89.29 Other chronic pain; M54.89 Other dorsalgia; J45.909 Unspecified asthma, uncomplicated; M79.7 Fibromyalgia; K21.9 Gastro-esophageal reflux disease without esophagitis; I10 Essential (primary) hypertension; F17.210 Nicotine dependence, cigarettes, uncomplicated; Z88.5 Allergy status to narcotic agent
CPT/HCPCS: 36415; 80053; 84484; 85025; 93005; 99285

== ENCOUNTER 2021-06-19 19:06 | Emergency (ER) | payer MEDICARE, OTHER ==
[~2021-06-19] VITALS: Ht 162.6 cm; Wt 86.3 kg
[~2021-06-19 19:06] MED LIST changes: +LISI10TA16 PO; -LISI10TA2 PO
[2021-06-19 19:46] VITALS: BP 126/96
--- NOTE | 2021-06-19 19:54 | PHYS DOC ---
Past History Past Medical History: Asthma, Fibromyalgia, GERD, Hypertension, Other Additional Past Medical Histor: vertigo (LAURA SANTOS) Past Surgical History: Other Additional Past Surgical Histo: LEFT KNEE (LAURA SANTOS) Smoking: Cigarettes, Less than 1pk/day Alcohol Use: None Drug Use: Marijuana (LAURA SANTOS) General Adult EDM: Chief Complaint: MEDICATION REFILL HPI: HPI: Patient is a 70 year old female who presents with request to refill oxycodone 5/325 prescription. Patient reports she underwent a left knee replacement on 06/10/2021. The following day, she states she called her orthopedic surgeon regarding her prescription and did not hear back all week. She denies any new injury or trauma, or any wound healing complaints. (LAURA SANTOS) Review of Systems: Review of Systems: ROS negative or noncontributory except as mentioned in HPI. (LAURA SANTOS) Allergies: Allergies: Allergies Coded Allergies Type Severity Reaction Last Updated Verified hydrocodone Allergy Unknown 04/08/20 Yes (LAURA SANTOS) Physical Exam: PE: Constitutional: Well developed, well nourished, no acute distress, non-toxic appearance. HENT: Normocephalic, atraumatic, bilateral external ears normal, nose normal. Eyes: EOMI, conjunctiva normal, no discharge. Neck: Normal range of motion, no stridor. Skin: Warm, dry, no erythema, no rash. Extremities: Left knee is currently in an immobilizer. Extremities otherwise no tenderness, no cyanosis, no clubbing, ROM intact, no edema. Neurologic: Alert and oriented x4, no focal deficits noted. (LAURA SANTOS) Current Patient Data: Vital Signs: Vital Signs Date Time Temp Pulse Resp B/P (MAP) Pulse Ox O2 Delivery O2 Flow Rate FiO2 06/19/21 19:46 98.5 87 18 126/96 (106) 97 Room Air (LAURA SANTOS) Heart Score: C/O Chest Pain: No (LAURA SANTOS) Course & Med Decision Making: Course & Med Decision Making Pertinent Labs and Imaging studies reviewed. (See chart for details) Patient was provided with 1 additional Percocet here in the emergency department. However, she was instructed to follow-up with her orthopedic surgeon and/or pain management for further management of chronic pain status post knee replacement. Patient is agreeable to bridging her treatment with ibuprofen at home. She was instructed not to exceed 600 mg every 6-8 hours. Patient understands and is agreeable to discharge plan. (LAURA SANTOS) Course & Med Decision Making Did not see or evaluate patient. Did not discuss patient with PA. Generally agree with PAs work-up and disposition per note (CARLENE MAYA MD) Dragon Disclaimer: Dragon Disclaimer: This electronic medical record was generated, in whole or in part, using a voice recognition dictation system. (LAURA SANTOS) Departure Departure: Impression: Primary Impression: Pain due to total left knee replacement Qualified Codes: T84.84XA - Pain due to internal orthopedic prosthetic devices, implants and grafts, initial encounter; Z96.652 - Presence of left artificial knee joint Additional Impression: Elevated blood pressure reading Disposition: HOME / SELF CARE / HOMELESS Condition: IMPROVED Referrals: EVE HANCOCK (PCP) Patient Instructions: Total Knee Replacement, Care After, [id number] Additional Instructions: EMERGENCY DEPARTMENT GENERAL DISCHARGE INSTRUCTIONS Thank you for coming to [facility] (ED) today and trusting us with you care. We trust that you had a positive experience in our Emergency Department. If you wish to speak to the department management, you may call the director at [phone]. YOUR FOLLOW UP INSTRUCTIONS ARE FOLLOWS: 1. Follow up with your primary care doctor for further management of your postoperative pain. If you do not have a primary doctor, please ask for a resource list of physicians or clinics that may be able to assist you with follow up care. 2. The emergency provider has interpreted your imaging studies, if any were ordered. The radiology clarity specialists also reviewed them. If there is a change in the findings, you will be notified in 48 hours when at all possible. 3. If a lab test or culture has been done, your results will be reviewed and you will be notified if you need a change in treatment. 4. Follow instructions verbalized to you and refer to the printouts if needed. ADDITIONAL INSTRUCTIONS AND INFORMATION: 1. Your care today has been supervised by a physician who is specially trained in emergency care. Many problems require more than one evaluation for a complete diagnosis and treatment. We recommend that you schedule your follow up appointment as recommended to ensure complete treatment of you illness or injury. If you are unable to obtain follow up care and continue to have a problem, or if your condition worsens, we recommend that you return to the ED. 2. We are not able to safely determine your condition over the phone nor are we able to give sound medical advice over the phone. For these safety reasons, if you call for medical advice we will ask you to come to the ED for further evaluation. 3. If you have any questions regarding these discharge instructions please call the ED at [phone]. SAFETY INFORMATION: In the interest of safety, wellness, and injury prevention; we encourage you to wear your seat belt, if you smoke; quite smoking, and we encourage family to use a protective helmet for bicycling and other sporting events that present an increased risk for head injury. IF YOUR SYMPTOMS WORSEN OR NEW SYMPTOMS DEVELOP, OR YOU HAVE CONCERNS ABOUT YOUR CONDITION; OR IF YOUR CONDITION WORSENS WHILE YOU ARE WAITING FOR YOUR FOLLOW UP APPOINTMENT; EITHER CONTACT YOUR PRIMARY CARE DOCTOR, THE PHYSICIAN WHOSE NAME AND NUMBER YOU WERE GIVEN, OR RETURN TO THE ED IMMEDIATELY. LAURA SANTOS Jun 19, 2021 19:54 CARLENE MAYA MD Jun 19, 2021 21:43
[2021-06-19] MEDS ORDERED: oxyCODONE/APAP 5/325 1 TAB TABLET PO ONE (20:00)
== END 2021-06-19 20:10 | disposition home or self-care (01) ==
LOC: ER 19:06
DX: T84.84XA Pain due to internal orthopedic prosthetic devices, implants and grafts, initial encounter (principal); Z76.0 Encounter for issue of repeat prescription; J45.909 Unspecified asthma, uncomplicated; M79.7 Fibromyalgia; K21.9 Gastro-esophageal reflux disease without esophagitis; I10 Essential (primary) hypertension; F17.210 Nicotine dependence, cigarettes, uncomplicated; Z96.652 Presence of left artificial knee joint; Z88.5 Allergy status to narcotic agent
CPT/HCPCS: 99283

== ENCOUNTER → 2021-07-09 | Outpatient (CLI) | payer MEDICARE, OTHER ==
[2021-06-19 19:46] VITALS: BP 126/96
--- NOTE | 2021-07-09 14:29 | RAD ---
EXAMINATION: XR KNEE 1-2 VIEWS CLINICAL HISTORY: PAIN, POST FALL AFTER SURGERY. TECHNIQUE: Bilateral knee radiographs with 3 views of the left knee and 2 views of the right knee. COMPARISON: Left knee radiographs 06/15/2021 and 05/20/2021 FINDINGS: RIGHT: Moderate medial and lateral compartment narrowing. Tricompartmental tiny marginal osteophytes. No acu te fracture. No joint effusion. LEFT: Postoperative changes related to open reduction internal fixation of the inferior patellar avulsion f racture with interval partial resorption of the osseous fragments along the inferior patella and prox imal patellar tendon. No evidence of acute fracture. Moderate medial and lateral compartment narrowin g. Tricompartmental tiny marginal osteophytes. Small joint effusion. IMPRESSION: No acute osseous abnormality. Postoperative changes related to ORIF of the left inferior patellar avulsion fracture as described. Degenerative changes bilateral knees as described. Electronically signed by: Shahzad Man DO (07/09/2021 2:27 PM) [id number]
== END ==
LOC: RAD 10:05
PROVIDERS: ATTEND Physician Assistant
DX: M25.462 Effusion, left knee (principal); M25.762 Osteophyte, left knee; M25.761 Osteophyte, right knee; Z98.890 Other specified postprocedural states
CPT/HCPCS: 73560-50

== ENCOUNTER → 2021-08-24 | Outpatient (CLI) | payer OTHER ==
--- NOTE | 2021-08-24 10:53 | RAD ---
INDICATION: Reason: S/P ORIF LT PATELLA / Spl. Instructions: / History: COMPARISON: July 09, 2021 IMPRESSION: Left knee: 2 views obtained. Repeat demonstration of fragmentation of the inferior pole of the patell a with multiple ossific fragments seen inferior to the patella. There is some interval resorption of a portion of the ossific densities at the known patellar fracture when compared to prior examination. Edema of soft tissues is seen inferior to the patella as well as within the prepatellar region. Smal l joint effusion. Mild degenerative changes of the knee. Electronically signed by: Fuad Hutchinson MD (08/24/2021 10:50 AM) [id number]
== END ==
LOC: RAD 09:56
PROVIDERS: ATTEND Physician Assistant
DX: S82.002A Unspecified fracture of left patella, initial encounter for closed fracture (principal); M17.12 Unilateral primary osteoarthritis, left knee; M25.462 Effusion, left knee; Z98.890 Other specified postprocedural states; X58.XXXA Exposure to other specified factors, initial encounter; Y93.89 Activity, other specified; Y92.89 Other specified places as the place of occurrence of the external cause; Y99.8 Other external cause status
CPT/HCPCS: 73560